=== PATIENT | female | born 1940 | race Caucasian/White ===

== ENCOUNTER 2019-03-04 07:13 | Day surgery (SDC) | payer MEDICARE, BC ==
[~2019-03-04 07:13] MED LIST: BUPIVACAINE HCL 0.75% INJ/PF (7.5 MG/1 ML) 10 ML SDV OD PRN; DORZOLAMIDE HCL 2%/TIMOLOL MALEAT 0.5% OPH SOLN 10 ML OD PRN; KETOROLAC TROMETHAMINE 0.45% 4 DROP/0.4 ML DROPERETTE OD PRN; LIDOCAINE 4% INJ/PF (40 MG/ML) 5 ML AMPUL OD PRN
[2019-03-04] MEDS ORDERED: EPINEPHRINE INJ/PF 1 MG/1 ML AMPULE ONE (07:17)
[2019-03-04] MEDS ORDERED: CHONDR SU A NA/HYALUR INTRAOC KIT (SURGICARE) ONE (07:18)
[2019-03-04] MEDS ORDERED: LIDOCAINE 1% INJ-PF (10 MG/ML) 30 ML SDV ONE (07:18)
[2019-03-04] MEDS: TROPICAMIDE 1% OPH SOLN 15 ML OD PRN ×3 (08:08→08:28)
[2019-03-04] MEDS: CYCLOPENTOLATE 0.2%/PHENYLEPHRINE 1% OPH SOLN 2 ML OD PRN ×3 (08:08→08:28)
[2019-03-04] MEDS: BESIFLOXACIN HCL 0.6% OPH SUSP 5 ML BOTTLE OD PRN ×3 (08:08→09:11)
[2019-03-04] MEDS: TETRACAINE HCL 0.5% OPH SOLN 4 ML OD PRN ×3 (08:09→08:46)
[2019-03-04] MEDS ORDERED: FENTANYL CITRATE INJ/PF 100 MCG/2 ML AMPUL ONE (08:37)
[2019-03-04] MEDS ORDERED: MIDAZOLAM 2 MG/2 ML INJ ONE (08:37)
--- NOTE | 2019-03-04 12:37 | Operative Report ---
Operative Report-[facility] Operative Report: DATE OF SURGERY: 03/04/2019 PREOPERATIVE DIAGNOSIS: CATARACT, RIGHT EYE. POSTOPERATIVE DIAGNOSIS: CATARACT, RIGHT EYE. PROCEDURE PERFORMED: PHACOEMULSIFICATION WITH POSTERIOR CHAMBER INTRAOCULAR LENS, RIGHT EYE. Intraocular Lens Model : Symfony Z XR 00 17.5 Total Phaco Time: 14.42 CDE SURGEON: AILYN COLLAZO MD ANESTHESIA: TOPICAL WITH MAC. INDICATIONS FOR SURGERY: Difficulty reading TV and difficulty with night driving. PROCEDURE: The patient was brought to the Operating Room and placed on the operative table. Following tetracaine drops, topical anesthesia was administered. This consisted of instrument wipe pledgets soaked in a solution of 4% Xylocaine mixed with 0.75% Marcaine in a 1:2 ratio. A 2 x 1 cm pledget was placed in the superior fornix. A 1 x 1 cm pledget was placed in the inferior fornix. The eye was patched shut for 5 minutes. The patch was removed. The eye was sterilely prepped and draped in the usual manner. Lid speculum was placed in the eye. The pledgets were removed. 4-0 black silk sutures were placed around the superior and the inferior rectus muscles to be used as traction. A conjunctival peritomy was made at the 10 o'clock position. Hemostasis was obtained with bipolar cautery. A posterior limbal groove was created using a crescent knife and dissected anteri jez towards the cornea. A sharp point blade was used to create a paracentesis site at the 2 o'clock position. 0.2 cc non preserved Lidocaine was injected into the anterior chamber. A 2.4 mm keratome was used to enter the anterior chamber through the groove. Viscoelastic was injected into the anterior chamber. An anterior capsulotomy was performed using Utrata forceps in a capsulorrhexis fashion. Hydrodissection and hydrodelineation were performed. Phacoemulsification was performed in [id number] technique. Following this, the I/A unit was used to remove residual cortex. Viscoelastic wa s injected into the capsular bag. The Intraocular lens was placed in the capsular bag. The I/A unit was used to remove residual viscoelastic. The wound was seen to be watertight under high and low pressure, and no sutures were placed. The intraocular lens was well centered. The pressure was adjusted in the eye to normal pressure. The 4-0 black silk sutures and lid speculum were removed. The eye was shielded after Besivance and Cosopt drops were placed. The patient tolerated the procedure well and was sent to the Recovery Room in good condition.
== END 2019-03-04 09:57 | disposition home or self-care (01) ==
LOC: SC 07:13
PROVIDERS: ATTEND Ophthalmology
DX: H25.811 Combined forms of age-related cataract, right eye (principal); I10 Essential (primary) hypertension; E11.9 Type 2 diabetes mellitus without complications; Z79.84 Long term (current) use of oral hypoglycemic drugs; Z79.899 Other long term (current) drug therapy; E78.00 Pure hypercholesterolemia, unspecified; Z86.73 Personal history of transient ischemic attack (TIA), and cerebral infarction without residual deficits; H25.813 Combined forms of age-related cataract, bilateral; H04.123 Dry eye syndrome of bilateral lacrimal glands; H01.002 Unspecified blepharitis right lower eyelid; H01.005 Unspecified blepharitis left lower eyelid
CPT/HCPCS: 66984; 82962; J2250; J3490 ×5; A9270; J0171; J3010; 142; V2788

== ENCOUNTER → 2019-03-25 | Day surgery (SDC) | payer MEDICARE, BC ==
[~2019-03-25] MED LIST changes: -BUPIVACAINE HCL 0.75% INJ/PF (7.5 MG/1 ML) 10 ML SDV OD PRN; +BUPIVACAINE HCL 0.75% INJ/PF (7.5 MG/1 ML) 10 ML SDV OS PRN; +CHONDR SU A NA/HYALUR INTRAOC KIT (SURGICARE) ONE; -DORZOLAMIDE HCL 2%/TIMOLOL MALEAT 0.5% OPH SOLN 10 ML OD PRN; +EPINEPHRINE INJ/PF 1 MG/1 ML AMPULE ONE; -KETOROLAC TROMETHAMINE 0.45% 4 DROP/0.4 ML DROPERETTE OD PRN; +KETOROLAC TROMETHAMINE 0.45% 4 DROP/0.4 ML DROPERETTE OS PRN; +LIDOCAINE 1% INJ-PF (10 MG/ML) 30 ML SDV ONE; -LIDOCAINE 4% INJ/PF (40 MG/ML) 5 ML AMPUL OD PRN; +LIDOCAINE 4% INJ/PF (40 MG/ML) 5 ML AMPUL OS PRN; +MIDAZOLAM 2 MG/2 ML INJ ONE
[2019-03-25] MEDS: TETRACAINE HCL 0.5% OPH SOLN 4 ML OS PRN ×3 (09:56→10:25)
[2019-03-25] MEDS: CYCLOPENTOLATE 0.2%/PHENYLEPHRINE 1% OPH SOLN 2 ML OS PRN ×3 (09:57→10:19)
[2019-03-25] MEDS: TROPICAMIDE 1% OPH SOLN 15 ML OS PRN ×3 (09:57→10:19)
[2019-03-25] MEDS: BESIFLOXACIN HCL 0.6% OPH SUSP 5 ML BOTTLE OS PRN ×4 (09:57→10:52)
[2019-03-25] MEDS: DORZOLAMIDE HCL 2%/TIMOLOL MALEAT 0.5% OPH SOLN 10 ML OS PRN ×2 (10:52)
--- NOTE | 2019-03-25 16:44 | Operative Report ---
Operative Report[facility] Operative Report: DATE OF SURGERY: 03/25/2019 PREOPERATIVE DIAGNOSIS: CATARACT, LEFT EYE. POSTOPERATIVE DIAGNOSIS: CATARACT, LEFT EYE. PROCEDURE PERFORMED: PHACOEMULSIFICATION WITH MULTIFOCAL POSTERIOR CHAMBER INTRAOCULAR LENS, LEFT EYE. Intraocular Lens Model :ZLBOO 19.5 Total Phaco Time: 9.7 CDE SURGEON: AILYN COLLAZO MD ANESTHESIA: TOPICAL WITH MAC. INDICATIONS FOR SURGERY: Difficultly driving at night PROCEDURE: The patient was brought to the Operating Room and placed on the operative table. Following tetracaine drops, topical anesthesia was administered. This consisted of instrument wipe pledgets soaked in a solution of 4% Xylocaine mixed with 0.75% Marcaine in a 1:2 ratio. A 2 x 1 cm pledget was placed in the superior fornix. A 1 x 1 cm pledget was placed in the inferior fornix. The eye was patched shut for 5 minutes. The patch was removed. The eye was sterilely prepped and draped in the usual manner. Lid speculum was placed in the eye. The pledgets were removed. 4-0 black silk sutures were placed around the superior and the inferior rectus muscles to be used as traction. A conjunctival peritomy was made at the 10 o'clock position. Hemostasis was obtained with bipolar cautery. A posterior limbal groove was created using a crescent knife and dissected anteriorly towards the cornea. A sharp point blade was used to create a paracentesis site at the 2 o'clock position. 0.2 cc non preserved Lidocaine was injected into the anterior chamber. A 2.4 mm keratome was used to enter the anterior chamber through the groove. Viscoelastic was injected into the anterior chamber. An anterior capsulotomy was performed using Utrata forceps in a capsulorrhexis fashion. Hydrodissection and hydrodelineation were performed. Phacoemulsification was performed in [id number] technique. Following this, the I/A unit was used to remove residual cortex. Viscoelastic was injected into the capsular bag. The Intraocular lens was placed in the capsular bag. The I/A unit was used to remove residual viscoelastic. The wound was seen to be watertight under high and low pressure, and no sutures were placed. The intraocular lens was well centered. The pressure was adjusted in the eye to normal pressure. The 4-0 black silk sutures and lid speculum were removed. The eye was shielded after Besivance and Cosopt drops were placed. The patient tolerated the procedure well and was sent to the Recovery Room in good condition.
== END ==
LOC: SC 08:59
PROVIDERS: ATTEND Ophthalmology
DX: H25.812 Combined forms of age-related cataract, left eye (principal); Z96.1 Presence of intraocular lens; I10 Essential (primary) hypertension; E11.9 Type 2 diabetes mellitus without complications; Z79.84 Long term (current) use of oral hypoglycemic drugs; Z79.899 Other long term (current) drug therapy
CPT/HCPCS: 66984; 82962; J2250; J3490 ×5; A9270; J0171; V2788

== ENCOUNTER 2019-11-30 17:05 | Emergency (ER) | payer MEDICARE, BC ==
[2019-11-30] MEDS ORDERED: NORMAL SALINE 1000 ML 1,000 ML IV ONE ×2 (17:23→18:23)
--- NOTE | 2019-11-30 17:25 | ER Document Report ---
ED Dizziness/Weakness <ARIELLE SALMERON IV - Last Filed: 12/01/19 04:49> - General Mode of Arrival: Medic Information source: Patient TRAVEL OUTSIDE OF THE [place] IN LAST 30 DAYS: No <MEGAN STEELE - Last Filed: 12/07/19 01:49> - General Chief Complaint: Weakness Stated Complaint: WEAKNESS Time Seen by Provider: 11/30/19 17:22 Primary Care Provider: DOMINIQUE ANDERSON MD [ACTIVE STAFF] - 12/01/19 (expect a call from Dr. Anderson's office today. ) MASON ESPINAL DO [Primary Care Provider] - Follow up as needed Notes: 79-year-old woman who was outside in the sun [place], she was out in the sun and became dizzy lightheaded and very weak EMS was called and the patient was found to be hypotensive with a systolic blood pressure in the 70s. She notes that she had not eaten today and had not drank very much fluids. She denies sweaty episodes or chest pain. She states that she had felt dizzy over the past 2 days but denies vertigo-like symptoms, but affirms lightheadedness and a sensation that she might pass out. She is taking metoprolol 50 mg daily for hypertension management. (IVETTE,MEGAN) - Related Data Allergies/Adverse Reactions: ibuprofen [From Motrin] Allergy (Mild, Verified 11/30/19 18:44) CRAMPING, NAUSEA allopurinol [Allopurinol] Adverse Reaction (Intermediate, Verified 11/30/19 18:44) COUGH Past Medical History - General Information source: Patient - Social History Smoking Status: Unknown if Ever Smoked Family History: Reviewed & Not Pertinent - Past Medical History Cardiac Medical History: Reports: Hx Hypercholesterolemia, Hx Hypertension, Hx Heart Murmur Denies: Hx Heart Attack Pulmonary Medical History: Reports: Hx Asthma, Hx Bronchitis - 2010, Hx Sleep Apnea Denies: Hx Tuberculosis Neurological Medical History: Reports: Hx Cerebrovascular Accident - SILENT STROKE ON MRI 2012. Denies: Hx Seizures Endocrine Medical History: Reports: Hx Diabetes Mellitus Type 2 GI Medical History: Reports: Hx Gastroesophageal Reflux Disease. Denies: Hx Hepatitis, Hx Hiatal Hernia, Hx Ulcer Musculoskeletal Medical History: Reports Hx Arthritis - hands, neck, knees Psychiatric Medical History: Reports: Hx Depression Infectious Medical History: Denies: Hx Hepatitis Past Surgical History: Reports: Hx Abdominal Surgery, Hx Appendectomy, Hx Cholecystectomy, Hx Hysterectomy, Hx Tonsillectomy. Denies: Hx Mastectomy, Hx Open Heart Surgery, Hx Pacemaker - Immunizations Hx Diphtheria, Pertussis, Tetanus Vaccination: No Hx Pneumococcal Vaccination: 01/08/12 <MEGAN STEELE - Last Filed: 12/07/19 01:49> Review of Systems <MEGAN STEELE - Last Filed: 12/07/19 01:49> - Review of Systems Notes: Constitutional: + weakness HENT: Negative for sore throat. Eyes: Negative for visual changes. Cardiovascular: Negative for chest pain. Respiratory: Negative for shortness of breath. Gastrointestinal: Negative for abdominal pain, vomiting or diarrhea. Genitourinary: Negative for dysuria. Musculoskeletal: Negative for back pain. Skin: Negative for rash. Neurological: + Dizziness 10 point ROS negative except as marked above and in HPI. (MEGAN STEELE) Physical Exam <MEGAN STEELE - Last Filed: 12/07/19 01:49> - Vital signs Vitals: Resp Pulse Ox 13 99 11/30/19 17:13 11/30/19 17:13 - Notes Notes: PHYSICAL EXAMINATION: Physical Exam: General: Well-nourished well-developed 79-year-old woman with complaint of dizziness and weakness HEENT: NC/AT, pupils equal round and reactive to light, MM moist,nares clear, oropharynx clear, airway patent Neck: supple, no adenopathy, no masses. Good range of motion Lungs: Good air movement, lungs clear no wheezes rales or rhonchi CVS: Regular rate and rhythm no murmur gallop or rub Abdomen: Soft, active, nontender, no masses, no hepatosplenomegaly Ext: No edema, clubbing or cyanosis. Neuro: Alert and responsive, moving all 4 extremities on command, cranial nerves intact, no focal findings Skin: Intact no open lesions, no rash PSYCH: Normal mood, normal affect. (MEGAN STEELE) Course - Laboratory Result Diagrams: 11/30/19 17:27 11/30/19 17:27 - Diagnostic Test Radiology reviewed: Reports reviewed - Consults Dr. Anderson Time consulted: 23:20 - Dr. Anderson obtained the patient's demographic information. He stated that his office would contact patient on 12/01/2019 to arrange follow up appointment Consulted provider: follow-up in office <ARIELLE SALMERON IV - Last Filed: 12/01/19 04:49> - Laboratory Result Diagrams: 11/30/19 17:27 11/30/19 17:27 <MEGAN STEELE - Last Filed: 12/07/19 01:49> - Re-evaluation Re-evalutation: 12/01/19 04:49 Patient has been able to tolerate p.o., has been able to ambulate to the bathroom without difficulty and is in no acute distress. Patient's current blood pressure is 125/84 with a heart rate of 66. O2 sats 100% on room air. Respiration rate is 16. Results of CT scan and concern for pancreatic carcinoma discussed with patient. Patient states that her brother of pancreatic cancer. Patient was also informed that was consulted about the CAT scan findings and that his office would be getting in touch with her later today. (ARIELLE SALMERON IV) 11/30/19 19:36 79-year-old woman who became dizzy and lightheaded while outside with her car which was [place] the beach. Found to be hypotensive by EMS given 1 L of saline with slight improvement of the blood pressure. She has received a total of 2-1/2 L in the emergency department, blood pressure now 94/62 review of her labs reveals potassium of 2.8, a sodium of 129.9, elevated LFTs and total bilirubin. The patient denies abdominal pain, states that she has had a cholecystectomy 4 years ago. Orders were given for potassium replacement, she is receiving 1/3 L of normal saline and a CT of the abdomen and pelvis with IV contrast is ordered. I have explained to the patient that she may need to be admitted to the hospital for further clarity and treatment. (MEGAN STEELE) - Vital Signs Vital signs: Temp Pulse Resp BP Pulse Ox 60 16 110/50 L 96 11/30/19 20:06 12/01/19 05:32 12/01/19 05:32 12/01/19 05:32 - Laboratory Laboratory results interpreted by me: 11/30/19 11/30/19 11/30/19 17:27 17:27 17:27 WBC 3.3 L RBC 3.69 L Hct 34.5 L Plt Count 101 L Eos % (Auto) 6.8 H Sodium 129.8 L Potassium 2.8 L* Chloride 96 L BUN 6 L Est GFR (MDRD) Non-Af 50 L Glucose 337 H Magnesium 1.4 L Total Bilirubin 3.4 H Direct Bilirubin 2.1 H AST 924 H ALT 531 H Alkaline Phosphatase 387 H NT-Pro-B Natriuret Pep Total Protein 4.9 L Albumin 2.7 L Urine Glucose (UA) Leukocyte Esterase Rfl 11/30/19 11/30/19 17:27 21:10 WBC RBC Hct Plt Count Eos % (Auto) Sodium Potassium Chloride BUN Est GFR (MDRD) Non-Af Glucose Magnesium Total Bilirubin Direct Bilirubin AST ALT Alkaline Phosphatase NT-Pro-B Natriuret Pep 570 H Total Protein Albumin Urine Glucose (UA) 150 H Leukocyte Esterase Rfl MODERATE H - Consults Dr. Anderson Reason for consultation: 12/01/19 04:53 ct a/p concerning for pancreatic adenocarcinoma (ARIELLE SALMERON IV) Discharge <ARIELLE SALMERON IV - Last Filed: 12/01/19 04:49> <MEGAN STEELE - Last Filed: 12/07/19 01:49> - Discharge Clinical Impression: Dehydration, Hypokalemia, Hypomagnesemia, Abnormal LFTs (liver function tests), Pancreatic abnormality Hypotension Qualifiers: Hypotension type: unspecified hypotension type Qualified Code(s): I95.9 - Hypotension, unspecified UTI (urinary tract infection) Qualifiers: Urinary tract infection type: site unspecified Hematuria presence: without hematuria Qualified Code(s): N39.0 - Urinary tract infection, site not specified Condition: Stable Disposition: HOME, SELF-CARE Additional Instructions: Return to the Emergency Department without delay if any worse. HOME CARE INSTRUCTIONS & INFORMATION: Thank you for choosing us for your medical needs. We hope you're satisfied with the care you received. After you leave, you must properly care for your problem and, at the same time, observe its progress. Any condition can change. Some illnesses can change rapidly over hours or days. If your condition worsens, return to the Emergency Department or see your physician promptly. ABOUT YOUR X-RAYS AND EKG'S: If you had an EKG or X-rays taken, they have been read by the Emergency Physician. The X-rays and EKG's will also be read by a Radiologist or Road Advisor within 24 hours. If discrepancies are noted, you will be notified by telephone. Please be certain the ED has a correct telephone number & address where you can be reached. Also, realize that some fractures or abnormalities do not show up on initial X-rays. If your symptoms continue, see your physician. ABOUT YOUR LABORATORY TEST: If you had laboratory tests, the results have been reviewed by the Emergency Physician. Some test results (for example cultures) may not be available for several days. You will be contacted if any test result shows you need additional treatment. Please be certain the ED has a correct telephone number and address where you can be reached. ABOUT YOUR MEDICATIONS: You will receive instructions on how to take your medicine on the prescription label you receive. Additional information may be provided by the Pharmacy. If you have questions afterwards, call the ED for clarification or further instructions. Some prescribed medications may cause drowsiness. Do not perform tasks such as driving a car or operating machinery without consulting your Pharmacist. If you feel you need a refill of pain medication, your condition will need re-evaluation. Please do not call for a refill of any medication. ABOUT YOUR SIGNATURE: Signature of this document acknowledges to followin. Understanding that you received emergency treatment and that you may be released before al medical problems are known or treated. Please be certain the ED has a correct phone number & address where you can be reached. 2. Acknowledgement that you will arrange for follow-up care as recommended. 3. Authorization for the Emergency Physician to provide information to your follow-up Physician in order to maximize your care. AT ANY TIME, IF YOUR SYMPTOMS CHANGE SIGNIFICANTLY OR WORSEN OR YOU DEVELOP NEW SYMPTOMS, RETURN TO THE EMERGENCY DEPARTMENT IMMEDIATELY FOR RE-EVALUATION. OUR GOAL IS TO PROVIDE EXCELLENT MEDICAL CARE! WE HOPE THAT WE HAVE MET YOUR EXPECTATIONS DURING YOUR EMERGENCY DEPARTMENT VISIT AND THAT YOU FEEL YOU HAVE RECEIVED EXCELLENT CARE! Dehydration Dehydration can result from vomiting or diarrhea, fever, or decreased intake of fluids. If severe, hospitalization and intravenous fluids may be required. Most cases are treated at home with fluids by mouth. For the next 24 hours, drink lots of clear fluids. In mild cases, this can be soda pop or sports drinks. For more severe dehydration, the doctor may rec ommend special fluids such as Pedialyte or Lytren. Try to get three liters (3 quarts) of fluid per day. If vomiting occurs, continue to drink the fluids frequently (every 15 to 20 minutes), but in small amounts (one or two ounces). Depending on the type of dehydration, the doctor may prescribe antinausea medicine or potassium replacements. Call the doctor or return for re-examination if you become progressively weak, vomit repeatedly, or have other new symptoms. Hypokalemia You have an abnormally decreased level of serum potassium. Hypokalemia may cause weakness, fatigue, or heart rhythm abnormalities. Sometimes there are no symptoms at all. Usually, low serum potassium is due to taking diuretics (water pills). It can also be due to excessive vomiting or diarrhea. If no obvious cause is evident, further evaluation will be necessary. Treatment is usually oral potassium supplements. Take these exactly as prescribed. You may also want to select foods which are naturally high in potassium -- fruits (such as bananas, cantaloupe, grapes, oranges, prunes, tomat oes), fresh vegetables (potatoes, spinach, beans, peas), orange or tomato juice, tomato pasta sauce, milk, fish (halibut, tuna, salmon, eusebio) A follow-up blood test is usually performed to assure that the potassium is returning to normal. Call the physician if you suffer severe weakness, muscle twitching or cramping, palpitations (pounding or irregular heartbeat), or any other new or alarming symptoms. Urinary Tract Infection Your evaluation indicates that you have a urinary tract infection. This is due to germs growing in the bladder. This is a common problem. This infection usually responds quickly to antibiotics. Your antibiotic should be taken exactly as prescribed. Drink plenty of fluids -- three to four quarts a day. Occasionally, a bladder anesthetic will be prescribed to help stop the feeling of urgency until the antibiotic has a chance to clear the infection. This may cause your urine to be dark orange. Certain urine infections require a culture. If the doctor obtained a culture, the results will be back in two days. You should call to see if a change in treatment is needed. A repeat urinalysis after you finish treatment is often recommended. The physician will let you know if further testing is required. Call the doctor if you develop fever, chills, flank pain, inability to urinate, or blood in the urine. Prescriptions: Nitrofurantoin Monohyd/M-Cryst [Macrobid 100 mg Capsule] 100 mg PO BID 10 Days #20 cap Referrals: MASON ESPINAL DO [Primary Care Provider] - Follow up as needed DOMINIQUE ANDERSON MD [ACTIVE STAFF] - 12/01/19 (expect a call from Dr. Anderson's office today. )
[2019-11-30 17:47] LABS: ABSOLUTE EOSINOPHILS # (AUTO) 0.2 10^3/uL (0.0-0.6); ABSOLUTE LYMPHOCYTES (AUTO) 0.5 10^3/uL (0.5-4.7); ABSOLUTE MONOCYTES (AUTO) 0.2 10^3/uL (0.1-1.4); ABSOLUTE NEUT (AUTO) 2.4 10^3/uL (1.7-8.2); EOSINOPHILS % (AUTO) 6.8 % (0-6); HEMATOCRIT 34.5 % (36.0-47.0); LYMPHOCYTES % (AUTO) 14.4 % (13-45); MEAN CORPUSCULAR HEMOGLOBIN 32.5 pg (27.0-33.4); MEAN CORPUSCULAR HGB CONC 34.8 g/dL (32.0-36.0); MEAN CORPUSCULAR VOLUME 94 fl (80-97); MONOCYTES % (AUTO) 6.4 % (3-13); PLATELET COUNT 101 10^3/uL (150-450); RED BLOOD COUNT 3.69 10^6/uL (3.72-5.28); RED CELL DISTRIBUTION WIDTH 13.4 % (11.5-14.0); SEGMENTED NEUTROPHILS % (AUTO) 71.4 % (42-78); TOTAL CELLS COUNTED % (AUTO) 100 %; WHITE BLOOD COUNT 3.3 10^3/uL (4.0-10.5)
[2019-11-30 18:03] LABS: ALBUMIN 2.7 g/dL (3.5-5.0); ALKALINE PHOSPHATASE 387 U/L (38-126); ANION GAP 8 (5-19); BILIRUBIN,DIRECT 2.1 mg/dL (0.0-0.4); BILIRUBIN,TOTAL 3.4 mg/dL (0.2-1.3); BLOOD UREA NITROGEN 6 mg/dL (7-20); CARBON DIOXIDE 26 mmol/L (22-30); CHLORIDE 96 mmol/L (98-107); CREATINE KINASE 48 U/L (30-135); GLUCOSE 337 mg/dL (75-110); TOTAL PROTEIN 4.9 g/dL (6.3-8.2)
[2019-11-30 18:12] LABS: ASPARTATE AMINO TRANSFERASE 924 U/L (14-36)
[2019-11-30 18:13] LABS: POTASSIUM 2.8 mmol/L (3.6-5.0)
[2019-11-30 18:15] LABS: CREATINE KINASE MB 0.82 ng/mL (<4.55); TROPONIN I 0.02 ng/mL
--- NOTE | 2019-11-30 19:21 | EKG REPORT ---
SEVERITY:- ABNORMAL ECG - SINUS RHYTHM BORDERLINE LEFT AXIS DEVIATION NONSPECIFIC T ABNORMALITIES, DIFFUSE LEADS : Confirmed by: Gary Tran 30-Nov-2019 19:20:18
--- NOTE | 2019-11-30 20:20 | RADIOLOGY REPORT (SQ) ---
AP Portable chest: 11/30/2019 7:19 PM CDT History: 79-year old patient with dizziness, weakness. Comparison: None available Findings: The cardiomediastinal silhouette is normal in size. No pneumothorax is seen. No acute airspace opacities are seen. No discrete pleural effusion is apparent. Impression: No acute airspace opacities are seen.
[2019-11-30] MEDS ORDERED: POTASSIUM CHLORIDE 20 MEQ PACKET PO ONE (20:30)
[2019-11-30] MEDS: POTASSI CL 20 MEQ/50 ML RIDER 20 MEQ/50 ML RTUPB IV SCH ×2 (20:36→23:04)
[2019-11-30 21:29] LABS: APPEARANCE,URINE SLIGHTLY-CLOUDY; BILIRUBIN,URINE NEGATIVE (NEGATIVE); COLOR,URINE YELLOW; GLUCOSE, URINE 150 mg/dL (NEGATIVE); KETONES,URINE NEGATIVE (NEGATIVE); PROTEIN,URINE NEGATIVE (NEGATIVE); URINE SPECIFIC GRAVITY 1.006; UROBILINOGEN,URINE NEGATIVE mg/dL (<2.0)
--- NOTE | 2019-11-30 22:09 | RADIOLOGY REPORT (SQ) ---
EXAM DESCRIPTION: CT ABDOMEN PELVIS WITH IV CONTRAST COMPLETED DATE/TME: 11/30/2019 19:42 CLINICAL HISTORY: 79 years, Female, Elevated T bili liver function tests. COMPARISON: None. TECHNIQUE: Contrast enhanced CT of the abdomen/pelvis was performed. Images were obtained after the administration of 91 mL of Omnipaque 350 intravenous contrast. Images stored on PACS. All CT scanners at this facility use dose modulation, iterative reconstruction, and/or weight based dosing when appropriate to reduce radiation dose to as low as reasonably achievable (ALARA). [facility]: Dose Right [facility]: CareDose [facility]: Dose Right [facility]: Teradose 4D [facility]: [email or web address] LIMITATIONS: None. FINDINGS: Limited evaluation of the lower chest reveals a band of opacity within the lingula, likely indicating an area of atelectasis or scar. Lung bases are otherwise clear. Liver is diffusely low in attenuation relative to the spleen. The gallbladder is absent. Mild intrahepatic biliary duct dilatation is noted, especially about the left hepatic lobe. In addition, the common bile duct appears dilated as well, abruptly changing in caliber as the common bile duct courses through the pancreatic head. The pancreatic duct is also dilated and ectatic with associated atrophy involving the pancreatic neck, body, and tail. Ultimately, the pancreatic duct also abruptly transitions in caliber at the level of the pancreatic head, best visualized on images 30-31 of series 3. There may be an ill-defined hypodensity about the pancreatic head at this location, best visualized on image 30 of series 601. Spleen, both adrenal glands, and both kidneys enhance symmetrically. However, a few subcentimeter low-density lesions are noted about both kidneys which are too small to accurately characterize. A few punctate calculi are noted about the lower pole of the left kidney as well. No hydronephrosis or hydroureter. The urinary bladder is well distended and shows no suspicious finding. Uterus and both ovaries are not visualized. Small and large bowel are normal in caliber. No evidence of bowel obstruction. There are small ventral hernias which contain short segment of small bowel. Calcifications are evident about the abdominal aorta and proximal iliac vessels. No suspicious lymphadenopathy or drainable fluid collections. Bone windows show no destructive osseous lesion. There is grade 1 anterolisthesis of L4 upon L5 with underlying moderate multilevel thoracolumbar spondylosis. IMPRESSION: Mild intrahepatic and common bile duct dilatation as well as pancreatic ductal dilatation (with atrophy involving the pancreatic neck, body, and tail), both of which appear to abruptly change in caliber at the level of the pancreatic head. Overall, these findings are concerning for an obstructive malignancy such as pancreatic adenocarcinoma or potentially a cholangiocarcinoma. Given that there is an ill-defined area of hypodensity located about the pancreatic head, pancreatic adenocarcinoma is favored. Recommend further assessment with EUS/ERCP. Small ventral hernias containing short segment of small bowel. No evidence of obstruction. Nonobstructive left nephrolithiasis. TECHNICAL DOCUMENTATION: Quality ID # [id number]: Final reports with documentation of one or more dose reduction techniques (e.g., Automated exposure control, adjustment of the mA and/or kV according to patient size, use of iterative reconstruction technique) copyright 2011 [employer]- All Rights Reserved
[2019-11-30] MEDS: MAGNESIUM SULFATE/D5W 1 GM/100 ML RTUPB IV SCH (23:04)
[2019-11-30] MEDS ORDERED: CEFTRIAXONE INJ 1000 MG VIAL IV ONE (23:27)
[2019-12-01] MEDS: MAGNESIUM SULFATE/D5W 1 GM/100 ML RTUPB IV SCH (00:51)
[2019-12-01] MEDS ORDERED: NORMAL SALINE 1000 ML 1,000 ML IV ONE (01:17)
[2019-12-01] MEDS ORDERED: NORMAL SALINE 1000 ML 500 ML IV ONE (04:20)
[2019-12-01 05:59] VITALS: BP 110/50
== END 2019-12-01 06:34 | disposition home or self-care (01) ==
LOC: ER 17:05
DX: N39.0 Urinary tract infection, site not specified (principal); I95.9 Hypotension, unspecified; R94.8 Abnormal results of function studies of other organs and systems; R94.5 Abnormal results of liver function studies; E83.42 Hypomagnesemia; E87.6 Hypokalemia; E86.0 Dehydration; R53.1 Weakness; R42 Dizziness and giddiness; E78.00 Pure hypercholesterolemia, unspecified; I10 Essential (primary) hypertension; E11.9 Type 2 diabetes mellitus without complications; Z88.6 Allergy status to analgesic agent
CPT/HCPCS: 93005; 99285; 96361; 96365; 96366; 96367; 96368; 36415; 87086; 82553; 82550; 83690; 83735; 85025; 80053; 81001; 84484; 83880; 71045; 74177; 93010; J3475 ×2; J0696; J3480; J7030 ×2; J3490

== ENCOUNTER → 2020-01-06 | Outpatient (CLI) | payer MEDICARE, BC | LOC: RAD 10:31 | PROVIDERS: ATTEND Internal Medicine | DX: C25.0 Malignant neoplasm of head of pancreas (principal) ==

== ENCOUNTER → 2020-01-20 | Outpatient (CLI) | payer MEDICARE, BC ==
--- NOTE | 2020-01-20 14:46 | RADIOLOGY REPORT (SQ) ---
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 TECHNIQUE: CT scan performed of the chest without intravenous contrast. Images reviewed with lung, soft tissue and bone windows. Reconstructed coronal and sagittal MPR images reviewed. All images st ored on PACS. All CT scanners at this facility use dose modulation, iterative reconstruction, and/or weight based d osing when appropriate to reduce radiation dose to as low as reasonably achievable (ALARA). [facility]: Dose Right [facility]: CareDose [facility]: Dose Right [facility]: Teradose 4D [facility]: Smart [employer] RADIATION DOSE: CT Rad equipment meets quality standard of care and radiation dose reduction techniq ues were employed. CTDIvol: 9.6 mGy. DLP: 342 mGy-cm. mGy. LIMITATIONS: No technical limitations. FINDINGS: LUNGS AND PLEURA: The trachea has normal caliber and appearance. No bronchial wall thicke guilherme or bronchiectasis. No focal consolidation. 6 mm subpleural nodule along the medial pleura supe rior segment left lower lobe (image 36), possibly rounded atelectasis with pleural scarring, indeterm inate. Minimal atelectasis lingula and right middle lobe. No other pulmonary nodules. HILAR AND MEDIASTINAL STRUCTURES: No identified masses or abnormal nodes. No obvious aneurysm. HEART AND VASCULAR STRUCTURES: Heart has normal size. Trace pericardial effusion. UPPER ABDOMEN: Interval development of pneumobilia with placement of a biliary stent since previous. Anastomosis in the transverse colon without evidence of bowel obstruction. No upper abdominal adeno scarlet. Partial visualization of the pancreas with poor visualization of the previously described mondragon creatic head lesion. THYROID AND OTHER SOFT TISSUES: No masses. No adenopathy. BONES: No significant finding. HARDWARE: None in the chest. OTHER: No other significant findings. IMPRESSION: 1. Indeterminate 6 mm subpleural nodule in the superior segment left lower lobe may represent rounded atelectasis with pleural scarring, however is indeterminate. A follow-up CT of the chest in 3 month s is recommended for re-evaluation. 2. Interval placement of a biliary stent with development of pneumobilia. The previously described p ancreatic head mass is poorly evaluated on this exam. TECHNICAL DOCUMENTATION: JOB ID: [id number] Quality ID # [id number]: Final reports with documentation of one or more dose reduction techniques (e.g., Au tomated exposure control, adjustment of the mA and/or kV according to patient size, use of iterative reconstruction technique) 2010 [employer]- All Rights Reserved Reading location - IP/workstation name: [email or web address]
== END ==
LOC: RAD 10:18
PROVIDERS: ATTEND Internal Medicine
DX: C25.0 Malignant neoplasm of head of pancreas (principal); R91.1 Solitary pulmonary nodule
CPT/HCPCS: 71250

== ENCOUNTER 2020-01-21 07:15 | Day surgery (SDC) | payer MEDICARE, BC ==
[~2020-01-21 07:15] MED LIST changes: +ACETAMINOPHEN 325 MG TABLET PO PRN; -BUPIVACAINE HCL 0.75% INJ/PF (7.5 MG/1 ML) 10 ML SDV OS PRN; +CEFAZOLIN 2 GM/D5W RTU 2 GM/50 ML RTUPB IV PRN; -CHONDR SU A NA/HYALUR INTRAOC KIT (SURGICARE) ONE; -EPINEPHRINE INJ/PF 1 MG/1 ML AMPULE ONE; +IBUPROFEN 800 MG in NORMAL SALINE 250 ML IV PRN; -KETOROLAC TROMETHAMINE 0.45% 4 DROP/0.4 ML DROPERETTE OS PRN; -LIDOCAINE 1% INJ-PF (10 MG/ML) 30 ML SDV ONE; -LIDOCAINE 4% INJ/PF (40 MG/ML) 5 ML AMPUL OS PRN; -MIDAZOLAM 2 MG/2 ML INJ ONE
[2020-01-21] MEDS ORDERED: ACETAMINOPHEN 325 MG TABLET ONE (08:06)
[2020-01-21] MEDS ORDERED: CEFAZOLIN 2 GM/D5W RTU 2 GM/50 ML RTUPB IV ONE (08:06)
--- NOTE | 2020-01-21 08:37 | RADIOLOGY REPORT (SQ) ---
EXAM DESCRIPTION: CHEST SINGLE VIEW IMAGES COMPLETED DATE/TIME: 01/21/2020 7:55 am REASON FOR STUDY: PAC COMPARISON: 11/30/2019 EXAM PARAMETERS: NUMBER OF VIEWS: One view. TECHNIQUE: Single frontal radiographic view of the chest acquired. RADIATION DOSE: NA LIMITATIONS: None. FINDINGS: LUNGS AND PLEURA: No opacities, masses or pneumothorax. No pleural effusion. MEDIASTINUM AND HILAR STRUCTURES: No masses. Contour normal. HEART AND VASCULAR STRUCTURES: Heart normal in size. Normal vasculature. BONES: Stable thoracic scoliosis with concavity toward the left. HARDWARE: None in the chest. OTHER: No other significant finding. IMPRESSION: NO ACUTE RADIOGRAPHIC FINDING IN THE CHEST. TECHNICAL DOCUMENTATION: JOB ID: [id number] 2010 [employer]- All Rights Reserved Reading location - IP/workstation name: [email or web address]
[2020-01-21] MEDS ORDERED: EPHEDRINE SULFATE INJ 50 MG/1 ML AMPULE ONE (09:04)
[2020-01-21] MEDS ORDERED: FENTANYL CITRATE INJ/PF 100 MCG/2 ML AMPUL ONE (09:04)
[2020-01-21] MEDS ORDERED: PROPOFOL INJ 200 MG/20 ML VIAL IV ONE (09:05)
[2020-01-21 09:28] LABS: ABSOLUTE LYMPHOCYTES (AUTO) 1.2 10^3/uL (0.5-4.7); ABSOLUTE MONOCYTES (AUTO) 0.4 10^3/uL (0.1-1.4); ABSOLUTE NEUT (AUTO) 3.9 10^3/uL (1.7-8.2); BASOPHILS % (AUTO) 0.3 % (0-2); EOSINOPHILS % (AUTO) 0.6 % (0-6); HEMOGLOBIN 13.4 g/dL (12.0-15.5); LYMPHOCYTES % (AUTO) 21.7 % (13-45); MEAN CORPUSCULAR HEMOGLOBIN 33.9 pg (27.0-33.4); MEAN CORPUSCULAR HGB CONC 34.3 g/dL (32.0-36.0); MEAN CORPUSCULAR VOLUME 99 fl (80-97); MONOCYTES % (AUTO) 6.5 % (3-13); PLATELET COUNT 141 10^3/uL (150-450); RED BLOOD COUNT 3.95 10^6/uL (3.72-5.28); RED CELL DISTRIBUTION WIDTH 14.1 % (11.5-14.0); SEGMENTED NEUTROPHILS % (AUTO) 70.9 % (42-78); TOTAL CELLS COUNTED % (AUTO) 100 %; WHITE BLOOD COUNT 5.5 10^3/uL (4.0-10.5)
[2020-01-21] MEDS ORDERED: BUPIVACAINE HCL 0.25 % INJ/PF (2.5 MG/1 ML) 30 ML VIAL ONE (09:29)
[2020-01-21] MEDS ORDERED: LIDOCAINE 1% INJ-PF (10 MG/ML) 30 ML SDV ONE (09:29)
[2020-01-21 09:52] LABS: ANION GAP 12 (5-19); BLOOD UREA NITROGEN 10 mg/dL (7-20); CALCIUM 9.3 mg/dL (8.4-10.2); CARBON DIOXIDE 25 mmol/L (22-30); CHLORIDE 100 mmol/L (98-107); GLUCOSE 143 mg/dL (75-110)
[2020-01-21] MEDS ORDERED: POTASSI CL 20 MEQ/50 ML RIDER 20 MEQ/50 ML RTUPB IV ONE (09:59)
[2020-01-21] MEDS ORDERED: FENTANYL CITRATE INJ/PF 100 MCG/2 ML AMPUL IV PRN ×3 (10:56)
[2020-01-21] MEDS ORDERED: MORPHINE SULFATE 10 MG/ML INJ IV PRN (10:56)
[2020-01-21] MEDS ORDERED: OXYCODONE-ACETAMINOPHEN 5-325 MG TABLET PO PRN ×2 (10:56)
[2020-01-21] MEDS ORDERED: MEPERIDINE HCL/PF INJ 25 MG/1 ML DISP.SYRIN IV PRN (10:56)
[2020-01-21] MEDS ORDERED: DIPHENHYDRAMINE HCL 50 MG/ML VIAL IV PRN (10:56)
[2020-01-21] MEDS ORDERED: PROMETHAZINE HCL INJ 25 MG/1 ML VIAL IV PRN ×2 (10:56)
--- NOTE | 2020-01-21 11:08 | Discharge Summary ---
Discharge Summary (SDC) - Discharge Final Diagnosis: Pancreatic cancer Date of Surgery: 01/21/20 Discharge Date: 01/21/20 Condition: Stable Treatment or Instructions: Discharge home. Diet as tolerated. Activity: As tolerated. Okay to use Mediport. Okay to shower starting Sunday. Prescriptions: Hydrocodone/Acetaminophen [Monon 5-325 mg Tablet] 1 tab PO Q6HP PRN #10 tablet PRN Reason: For Pain Referrals: MASON ESPINAL DO [Primary Care Provider] - Discharge Diet: As Tolerated Respiratory Treatments at Home: Deep Breathing/Coughing, Incentive Spirometer Discharge Activity: Balance Activity w/Rest Home Care Assistance: None Needed Report the Following to Your Physician Immediately: Shortness of Breath, Nausea, Vomiting, Increase in Pain, Fever over 101 Degrees, Unusual Bleeding, Redness, Swelling, Warmth, Increased Soreness
[2020-01-21] MEDS ORDERED: HYDROCODONE/ACETAMINOPHEN 5-325 MG TABLET PO PRN (11:14)
--- NOTE | 2020-01-21 11:14 | Operative Report ---
Nonrecallable Operative Report DATE OF SURGERY: 01/21/20 PREOPERATIVE DIAGNOSIS: Pancreatic cancer POSTOPERATIVE DIAGNOSIS: Same as above OPERATION: 1. Ultrasound-guided central venous puncture. 2. Left internal jugular vein Mediport placement. SURGEON: LUPILLO ARANA ANESTHESIA: LMAC TISSUE REMOVED OR ALTERED: None COMPLICATIONS: None apparent ESTIMATED BLOOD LOSS: Minimal PROCEDURE: Drains/implants: Mediport, left IJ. Procedure in detail: After informed consent was obtained, the patient was brought to the operating room and laid in the Trendelenburg position. The area of the neck and chest was prepped and draped in a normal sterile fashion. The ultrasound was used to identify the left internal jugular vein. It was compressible with normal flow. Under direct ultrasonic guidance, the jugular vein was cannulated using the supplied access needle. Dark venous, nonpulsatile blood was returned in the syringe. The wire was inserted easily. It was confirmed to be within the lumen of the vein using both the ultrasound as well as fluoroscopy. Documentation was obtained and placed on the chart. Once this was confirmed, a separate incision was created on the left chest wall with a 15 blade scalpel. The catheter was then tunneled from the Mediport insertion site, to the needle insertion site. The dilator and breakaway sheath were then inserted over the wire, under direct fluoroscopic guidance. The wire and dilator were removed, leaving the sheath within the SVC. The catheter was inserted into the breakaway sheath. The sheath was cracked and pulled away, leaving the catheter within the innominate vein. The catheter curled within the innominate vein, so it was pulled back to a level where it was straight, but laid within the innominate vein. Once this was completed, the catheter was trimmed, and the Mediport hub was attached. The hub was buried in the pocket. The Mediport hub was sutured to the chest wall using 3-0 Vicryl suture. The overlying skin was closed using 3-0 Vicryl suture in simple running fashion. The skin was closed using 4-0 Vicryl Rapide suture in subcuticular fashion. The Mediport was accessed with an angled Thao needle, aspirated, and flushed with heparin. Next, a dressing was placed, and the procedure was concluded. All sponge, instrument, needle counts were correct x2. Condition: Stable.
[2020-01-21] MEDS ORDERED: HYDROCODONE/ACETAMINOPHEN 5-325 MG TABLET ONE (11:36)
--- NOTE | 2020-01-21 11:54 | RADIOLOGY REPORT (SQ) ---
EXAM DESCRIPTION: CHEST SINGLE VIEW IMAGES COMPLETED DATE/TIME: 01/21/2020 11:33 am REASON FOR STUDY: mediport placement COMPARISON: 01/21/2020 EXAM PARAMETERS: NUMBER OF VIEWS: One view. TECHNIQUE: Single frontal radiographic view of the chest acquired. RADIATION DOSE: NA LIMITATIONS: None. FINDINGS: LUNGS AND PLEURA: Minimal atelectasis now present the left base. Stxklu-S-Ieke is been pl aced. Tip overlies the innominate vein. No pneumothorax. MEDIASTINUM AND HILAR STRUCTURES: No masses. Contour normal. HEART AND VASCULAR STRUCTURES: Heart normal in size. Normal vasculature. BONES: No acute findings. HARDWARE: None in the chest. OTHER: No other significant finding. IMPRESSION: Left-sided Fdbrko-Z-Svae is in place. Tip overlies the innominate vein. No pneumothora x. TECHNICAL DOCUMENTATION: JOB ID: [id number] 2010 [employer]- All Rights Reserved Reading location - IP/workstation name: BRE
--- NOTE | 2020-01-21 12:04 | RADIOLOGY REPORT (SQ) ---
EXAM DESCRIPTION: FLUORO/CV PLACEMENT IMAGES COMPLETED DATE/TIME: 01/21/2020 11:14 am REASON FOR STUDY: PORTACATH LEFT SIDE C25.9 MALIGNANT NEOPLASM OF PANCREAS, UNSPECIFIED Z79.899 OT HER RESIDENTIAL (CURRENT) DRUG THERAPY COMPARISON: None. FLUOROSCOPY TIME: 0.7 minutes Spot images saved to PACS. TECHNIQUE: Intra-operative images acquired during surgical procedure to evaluate progress. NUMBER OF IMAGES: 1 LIMITATIONS: None. FINDINGS: Fluoroscopy was provided for intraoperative procedure. Please refer to the operative repo rt for further discussion. IMPRESSION: IMAGE(S) OBTAINED DURING PROCEDURE. COMMENT: Quality ID 145: Final reports for procedures using fluoroscopy that document radiation exp osure indices, or exposure time and number of fluorographic images (if radiation exposure indices are not available) Please consult full operative report of the attending physician for description of the procedure. TECHNICAL DOCUMENTATION: JOB ID: [id number] 2010 [employer]- All Rights Reserved Reading location - IP/workstation name: [email or web address]
[2020-01-21 13:04] VITALS: BP 140/63
[2020-01-21] MEDS ORDERED: LIDOCAINE 2% INJ-PF (20 MG/ML) 2 ML AMPUL ONE (13:51)
[2020-01-21] MEDS ORDERED: ONDANSETRON HCL INJ/PF 4 MG/2 ML SDV ONE (13:51)
--- NOTE | 2020-01-21 19:14 | EKG REPORT ---
SEVERITY:- BORDERLINE ECG - SINUS RHYTHM LVH BY VOLTAGE CONSIDER ANTERIOR INFARCT : Confirmed by: Gary Tran 21-Jan-2020 19:12:41
== END 2020-01-21 13:00 | disposition home or self-care (01) ==
LOC: OROUT 07:15
PROVIDERS: ATTEND Surgery
DX: C25.9 Malignant neoplasm of pancreas, unspecified (principal); Z79.899 Other long term (current) drug therapy; Z88.8 Allergy status to other drugs, medicaments and biological substances; E11.9 Type 2 diabetes mellitus without complications; Z86.73 Personal history of transient ischemic attack (TIA), and cerebral infarction without residual deficits; I10 Essential (primary) hypertension; Z79.84 Long term (current) use of oral hypoglycemic drugs; Z79.4 Long term (current) use of insulin; Z03.818 Encounter for observation for suspected exposure to other biological agents ruled out
CPT/HCPCS: 36561; 36415; 85025; 80048; 77001; 71045; 93005; 93010; 00532; C1788; U0003; A9270 ×2; J3010; J3490 ×2; J2405; J3480; J2704; J0690; J1642; C9803; 532; 87635; J1741; J7050

== ENCOUNTER → 2020-02-23 | Outpatient (CLI) | payer MEDICARE, BC ==
--- NOTE | 2020-02-23 09:25 | RADIOLOGY REPORT (SQ) ---
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 No oral contrast. Images reviewed with lung, soft tissue, and bone windows. Reconstructed coronal and sagittal MPR images reviewed. Delayed images for evaluation of the urinary system also acquired. All images stored on PACS. All CT scanners at this facility use dose modulation, iterative reconstruction, and/or weight based d osing when appropriate to reduce radiation dose to as low as reasonably achievable (ALARA). [facility]: Dose Right [facility]: CareDose [facility]: Dose Right [facility]: Teradose 4D [facility]: Smart [employer] CONTRAST TYPE AND DOSE: See chest RENAL FUNCTION: Creatinine 0.6 RADIATION DOSE: CT Rad equipment meets quality standard of care and radiation dose reduction techniq ues were employed. CTDIvol: 10.0 - 19.0 mGy. DLP: 1913 mGy-cm.. LIMITATIONS: None. FINDINGS: LOWER CHEST: See separate report of the CT of the chest. LIVER: Pneumobilia with interval placement of a metallic CBD stent. No definitive intrahepatic bilia ry ductal dilatation. No focal hepatic lesions. SPLEEN: Normal size. No focal lesions. PANCREAS: Again seen is pancreatic ductal dilation and pancreatic parenchymal atrophy. Grossly stabl e ill-defined area of hypoattenuation in the region of the pancreatic head. Celiac and SMA are uninv olved. Portal and splenic vein are widely patent. GALLBLADDER: Absent. ADRENAL GLANDS: No significant masses or asymmetry. RIGHT KIDNEY AND URETER: Cortical thinning. No discrete solid masses. No significant calcification s. No hydronephrosis or hydroureter. LEFT KIDNEY AND URETER: Cortical thinning. No discrete solid masses. Punctate nonobstructing lower pole stones. No hydronephrosis or hydroureter. AORTA AND VESSELS: No aneurysm. No dissection. Renal arteries, SMA, celiac without stenosis. RETROPERITONEUM: No retroperitoneal adenopathy, hemorrhage or masses. BOWEL AND PERITONEAL CAVITY: No evidence of intestinal obstruction. No focal bowel wall thickening. CBD stent projects into the descending duodenum lumen. Evidence of prior partial colon resection wi th anastomotic chain staple line at the transverse colon. APPENDIX: Surgically absent. PELVIS: Decompressed urinary bladder. No pelvic free fluid, adenopathy or mass. ABDOMINAL WALL: Small umbilical hernia containing fat and a knuckle of small bowel. Diastases recti. BONES: No acute bony abnormality. No discrete lytic or blastic osseous lesions. Lower lumbar spondy losis and a set arthropathy. Grade 1 anterolisthesis of L4 on L5. OTHER: No other significant finding. IMPRESSION: 1. Interval placement of a CBD stent with new pneumobilia. CBD stent appears in expect ed location. 2. Unchanged appearance of the pancreas. No celiac or SMA involvement. No discrete adenopathy or o ther evidence of metastatic disease. 3. No other evidence of acute intra-abdominal/pelvic process. See same-day chest CT for findings ab ove the diaphragm. TECHNICAL DOCUMENTATION: JOB ID: [id number] Quality ID # [id number]: Final reports with documentation of one or more dose reduction techniques (e.g., Au tomated exposure control, adjustment of the mA and/or kV according to patient size, use of iterative reconstruction technique) 2010 [email or web address]- All Rights Reserved Reading location - IP/workstation name: [email or web address]-
--- NOTE | 2020-02-23 09:32 | RADIOLOGY REPORT (SQ) ---
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 Images reviewed with lung, soft tissue and bone windows. Reconstructed coronal and sagittal MPR and MIP images reviewed. All images stored on PACS. All CT scanners at this facility use dose modulation, iterative reconstruction, and/or weight based d osing when appropriate to reduce radiation dose to as low as reasonably achievable (ALARA). [facility]: Dose Right [facility]: CareDose [facility]: Dose Right [facility]: Teradose 4D [facility]: [employer] CONTRAST TYPE AND DOSE: contrast/concentration: Isovue 350.00 mmol/ml; Total Contrast Delivered: 93. 0 ml; Total Saline Delivered: 40.0 ml RENAL FUNCTION: Creatinine 0.6 RADIATION DOSE: . LIMITATIONS: None. FINDINGS: LUNGS AND PLEURA: Stable linear 6 mm nodular opacity along the the posterior left upper lo be (image 18, series 4) no other discrete pulmonary nodules or masses. Minimal lingular scarring, st able no pleural effusion or pneumothorax. No airspace disease. HILAR AND MEDIASTINAL STRUCTURES: No identified masses or abnormal nodes. HEART AND VASCULAR STRUCTURES: Normal heart size. Trace pericardial effusion. Scattered coronary at herosclerosis. HARDWARE: Left-sided chest port with catheter tip at innominate vein. UPPER ABDOMEN: See separate report of the CT of the abdomen. THYROID AND OTHER SOFT TISSUES: No masses. No adenopathy. BONES: No acute bony abnormality. No discrete lytic or blastic osseous lesions. Dextroconvex thorac ic curvature. OTHER: No other significant finding. IMPRESSION: 1. Stable previous described linear 6 mm left upper lobe nodular opacity, likely scarri ng. No other evidence of intrathoracic metastatic disease. 2. No acute intrathoracic findings. TECHNICAL DOCUMENTATION: JOB ID: [id number] Quality ID # [id number]: Final reports with documentation of one or more dose reduction techniques (e.g., Au tomated exposure control, adjustment of the mA and/or kV according to patient size, use of iterative reconstruction technique) 2010 [employer]- All Rights Reserved Reading location - IP/workstation name: BRE
== END ==
LOC: RAD 07:26
PROVIDERS: ATTEND Internal Medicine
DX: C25.0 Malignant neoplasm of head of pancreas (principal)
CPT/HCPCS: 71260; 74177; 82565

== ENCOUNTER 2020-03-12 09:39 | Emergency (ER) | payer MEDICARE, BC ==
[2020-03-12 10:00] LABS: ABSOLUTE MONOCYTES (AUTO) 0.7 10^3/uL (0.1-1.4); ABSOLUTE NEUT (AUTO) 7.9 10^3/uL (1.7-8.2); BASOPHILS % (AUTO) 0.3 % (0-2); EOSINOPHILS % (AUTO) 0.5 % (0-6); HEMATOCRIT 33.5 % (36.0-47.0); HEMOGLOBIN 11.7 g/dL (12.0-15.5); LYMPHOCYTES % (AUTO) 10.2 % (13-45); MEAN CORPUSCULAR HEMOGLOBIN 33.6 pg (27.0-33.4); MEAN CORPUSCULAR HGB CONC 34.8 g/dL (32.0-36.0); MEAN CORPUSCULAR VOLUME 97 fl (80-97); MONOCYTES % (AUTO) 6.9 % (3-13); PLATELET COUNT 186 10^3/uL (150-450); RED BLOOD COUNT 3.48 10^6/uL (3.72-5.28); SEGMENTED NEUTROPHILS % (AUTO) 82.1 % (42-78); TOTAL CELLS COUNTED % (AUTO) 100 %; WHITE BLOOD COUNT 9.6 10^3/uL (4.0-10.5)
[2020-03-12 10:31] LABS: ALBUMIN 2.4 g/dL (3.5-5.0); ALKALINE PHOSPHATASE 144 U/L (38-126); ANION GAP 5 (5-19); ASPARTATE AMINO TRANSFERASE 21 U/L (14-36); BILIRUBIN,DIRECT 0.3 mg/dL (0.0-0.4); BILIRUBIN,TOTAL 0.8 mg/dL (0.2-1.3); BLOOD UREA NITROGEN 7 mg/dL (7-20); CALCIUM 8.8 mg/dL (8.4-10.2); CARBON DIOXIDE 29 mmol/L (22-30); CHLORIDE 100 mmol/L (98-107); GLUCOSE 76 mg/dL (75-110); POTASSIUM 3.3 mmol/L (3.6-5.0); TOTAL PROTEIN 4.9 g/dL (6.3-8.2)
--- NOTE | 2020-03-12 10:49 | RADIOLOGY REPORT (SQ) ---
EXAM DESCRIPTION: CHEST 2 VIEWS IMAGES COMPLETED DATE/TIME: 03/12/2020 10:12 am REASON FOR STUDY: chest pain COMPARISON: 01/21/2020 EXAM PARAMETERS: NUMBER OF VIEWS: two views TECHNIQUE: Digital Frontal and Lateral radiographic views of the chest acquired. RADIATION DOSE: NA LIMITATIONS: none FINDINGS: LUNGS AND PLEURA: No opacities, masses or pneumothorax. No pleural effusion. MEDIASTINUM AND HILAR STRUCTURES: No masses or contour abnormalities. HEART AND VASCULAR STRUCTURES: Heart normal size. No evidence for failure. BONES: No acute findings. HARDWARE: [id number]-[id number]-[id number] remains in place. OTHER: Metallic biliary stent is noted in place. IMPRESSION: NO ACUTE RADIOGRAPHIC FINDING IN THE CHEST. TECHNICAL DOCUMENTATION: JOB ID: [id number] 2010 [employer]- All Rights Reserved Reading location - IP/workstation name: BRE
[2020-03-12 10:54] LABS: CREATINE KINASE MB < 0.22 ng/mL (<4.55); TROPONIN I < 0.012 ng/mL
[2020-03-12 10:57] LABS: CREATINE KINASE < 20 U/L (30-135)
[2020-03-12] MEDS ORDERED: MAG HYDROX/AL HYDROX/SIMETH SUSP 30 ML UDCUP PO ONE ×2 (12:26→14:35)
[2020-03-12] MEDS ORDERED: LIDOCAINE 2% VISCOUS SOLN 15 ML UDCUP PO ONE ×2 (12:26→14:35)
--- NOTE | 2020-03-12 13:45 | ER Document Report ---
Entered by HUMPHREY GONZALEZ SCRIBE 03/12/20 1219 Acting as scribe for:SHANIA ROSSI MD ED General - General Chief Complaint: Chest Pain Stated Complaint: CHEST PAIN Time Seen by Provider: 03/12/20 12:03 Primary Care Provider: EUGENE KELLY NP [Primary Care Provider] - Follow up as needed Mode of Arrival: Ambulatory Information source: Patient Notes: This 80-year-old female patient presents to the emergency department today with complaints of epigastric abdominal pain. Patient was diagnosed with pancreatic cancer in November and is on immunotherapy (Keytruda). Patient states she has had this upper abdominal pain for the last 3 days, mentioning that it first began in her back intermittently and since yesterday it has been constant in her back and her abdomen. Patient is nauseated but denies any vomiting or fevers. TRAVEL OUTSIDE OF THE [place] IN LAST 30 DAYS: No - Related Data Allergies/Adverse Reactions: ibuprofen [From Motrin] Allergy (Mild, Verified 01/21/20 07:54) CRAMPING, NAUSEA allopurinol [Allopurinol] Adverse Reaction (Intermediate, Verified 01/21/20 07:54) COUGH Past Medical History - General Information source: Patient - Social History Smoking Status: Never Smoker Cigarette use (# per day): No Frequency of alcohol use: None Drug Abuse: None Lives with: Family Family History: Reviewed & Not Pertinent - Past Medical History Cardiac Medical History: Reports: Hx Hypercholesterolemia, Hx Hypertension, Hx Heart Murmur Pulmonary Medical History: Reports: Hx Asthma, Hx Bronchitis - 2010, Hx Sleep Apnea Neurological Medical History: Reports: Hx Cerebrovascular Accident - SILENT STROKE ON MRI 2012 Endocrine Medical History: Reports: Hx Diabetes Mellitus Type 2 Malignancy Medical History: Reports: Hx Pancreatic Cancer GI Medical History: Reports: Hx Gastroesophageal Reflux Disease Musculoskeletal Medical History: Reports Hx Arthritis - hands, neck, knees Psychiatric Medical History: Reports: Hx Depression Past Surgical History: Reports: Hx Abdominal Surgery, Hx Appendectomy, Hx Cholecystectomy, Hx Hysterectomy, Hx Tonsillectomy - Immunizations Hx Diphtheria, Pertussis, Tetanus Vaccination: No Hx Pneumococcal Vaccination: 01/08/12 Review of Systems - Review of Systems Constitutional: denies: Fever EENT: No symptoms reported Cardiovascular: No symptoms reported Respiratory: No symptoms reported Gastrointestinal: See HPI, Abdominal pain - upper, Nausea. denies: Vomiting Genitourinary: No symptoms reported Female Genitourinary: No symptoms reported Musculoskeletal: No symptoms reported Skin: No symptoms reported Hematologic/Lymphatic: No symptoms reported Neurological/Psychological: No symptoms reported -: Yes All other systems reviewed and negative Physical Exam - Vital signs Vitals: Pulse Ox 98 03/12/20 09:43 - Notes Notes: Physical Exam: General: Alert, appears well. HEENT: Normocephalic. Atraumatic. PERRL. Extraocular movements intact. Oropharynx clear. Neck: Supple. Non-tender. Respiratory: No respiratory distress. Clear and equal breath sounds bilaterally. Cardiovascular: Regular rate and rhythm. Abdominal: Epigastric tenderness to palpation. Non-tender. No distension. Normal Bowel Sounds. Back: No gross abnormalities. Extremities: Moves all four extremities. Upper extremities: Normal inspection. Normal ROM. Lower extremities: Normal inspection. No edema. Normal ROM. Neurological: Normal cognition. AAOx4. Normal speech. Psychological: Normal affect. Normal Mood. Skin: Warm. Dry. Normal color. Course - Re-evaluation Re-evalutation: 03/12/20 14:35 The patient did receive relief from her epigastric discomfort after drinking the GI cocktail. She states after she drank it, then the pain seemed to move into her back. At this time the epigastric discomfort is starting to return and she is tender to palpate there again. Her lab work shows normal bilirubin and normal lipase levels. She does report a history of GERD. We will repeat her GI cocktail and reevaluate. 03/12/20 15:26 I reevaluated the patient about 15 minutes after the second GI cocktail. She states this time it made the pain in her back go away along with the pain in the front. On palpation I am able to palpate considerably deeper into her epigastric abdomen before eliciting discomfort. The patient's immediate response to GI cocktails on each occasion suggest that this will be a gastroesophageal reflux issue more likely than related to her pancreatic cancer. She was recently started on potassium replacement medication, and I wonder if this may be contributing to her new reflux problems. 03/12/20 15:28 - Vital Signs Vital signs: Temp Pulse Resp BP Pulse Ox 16 119/60 100 03/12/20 09:50 03/12/20 09:50 03/12/20 09:50 - Laboratory Result Diagrams: 03/12/20 09:44 03/12/20 09:44 Laboratory results interpreted by me: 03/12/20 03/12/20 03/12/20 09:44 09:44 09:44 RBC 3.48 L Hgb 11.7 L Hct 33.5 L MCH 33.6 H RDW 15.0 H Lymph % (Auto) 10.2 L Seg Neutrophils % 82.1 H Sodium 133.8 L Potassium 3.3 L Creatinine 0.50 L Alkaline Phosphatase 144 H Creatine Kinase < 20 L Total Protein 4.9 L Albumin 2.4 L Lipase 13.3 L Ur Leukocyte Esterase 03/12/20 13:08 RBC Hgb Hct MCH RDW Lymph % (Auto) Seg Neutrophils % Sodium Potassium Creatinine Alkaline Phosphatase Creatine Kinase Total Protein Albumin Lipase Ur Leukocyte Esterase SMALL H - Diagnostic Test Radiology reviewed: Image reviewed, Reports reviewed - Chest x-ray does not show acute radiographic changes. - EKG Interpretation by Me EKG shows normal: Sinus rhythm, Declo, Intervals, QRS Complexes. abnormal: ST-T Waves - Borderline anterior T abnormalities Rate: Normal - 67 Rhythm: NSR Declo/QRS: Left axis deviation When compared to previous EKG there are: No significant change - Consults Dr. Anderson Time consulted: 15:20 Consulted provider: follow-up in office Discharge - Discharge Clinical Impression: Epigastric abdominal pain Gastroesophageal reflux disease Qualifiers: Esophagitis presence: esophagitis presence not specified Qualified Code(s): K21.9 - Gastro-esophageal reflux disease without esophagitis Condition: Stable Disposition: HOME, SELF-CARE Additional Instructions: Reflux Disease (GERD) Gastro-Esophageal Reflux Disease (GERD) is caused by stomach acid refluxing back up into the esophagus. The valve at the end of the esophagus may be weak. This is common in persons with a hiatal hernia. GERD symptoms can include indigestion, chest pain, heartburn, or food "sticking." Certain foods, alcohol, and aspirin can make GERD worse. Treatment depends on the severity. Usually, antacids or acid-suppressing medicines are used. When the esophagus is acutely inflamed, the physician will often prescribe membrane-protective drugs such as Carafate. Some patients benefit from medication such as Reglan that tightens the valve at the top of the stomach. Avoid those foods that bring on your symptoms. For many people, these foods are coffee, chocolate, onions, garlic, and carbonated drinks. Don't use alcohol, aspirin, caffeine, or tobacco. Don't eat late at night -- within 4 martha rs of bedtime. Don't over-eat. If necessary, elevate the head of your bed about 4 inches so that stomach acid will not roll up into your esophagus. Call the doctor if you develop severe chest pain, inability to swallow fluids, fever, or worsening symptoms. Your examination and treatment in the emergency room today suggest that your epigastric discomfort is most likely due to acid reflux. Take the omeprazole as prescribed once daily. Eat a bland diet. Take antacids between meals and at bedtime. Take your potassium tablets with a large glass of milk. Follow-up with Dr. Anderson Sunday if not feeling better. RETURN TO THE EMERGENCY ROOM IF ANY NEW OR WORSENING SYMPTOMS. Prescriptions: Omeprazole 20 mg PO DAILY #30 tablet. Referrals: EUGENE KELLY, SUPERVISOR DOG LICENSE OFFICER [Primary Care Provider] - Follow up as needed I personally performed the services described in the documentation, reviewed and edited the documentation which was dictated to the scribe in my presence, and it accurately records my words and actions.
[2020-03-12 13:48] LABS: APPEARANCE,URINE CLEAR; BILIRUBIN,URINE NEGATIVE (NEGATIVE); COLOR,URINE YELLOW; GLUCOSE, URINE NEGATIVE (NEGATIVE); KETONES,URINE NEGATIVE (NEGATIVE); LEUKOCYTE ESTERASE,URINE SMALL (NEGATIVE); NITRITE,URINE NEGATIVE (NEGATIVE); PROTEIN,URINE NEGATIVE (NEGATIVE); URINE SPECIFIC GRAVITY 1.004; UROBILINOGEN,URINE NEGATIVE mg/dL (<2.0)
[2020-03-12 16:11] VITALS: BP 131/68
--- NOTE | 2020-03-13 06:57 | EKG REPORT ---
SEVERITY:- BORDERLINE ECG - SINUS RHYTHM LVH BY VOLTAGE : Confirmed by: David Antonio MD 13-Mar-2020 06:56:32
== END 2020-03-12 16:13 | disposition home or self-care (01) ==
LOC: ER 09:39
DX: K21.9 Gastro-esophageal reflux disease without esophagitis (principal); R10.13 Epigastric pain; C25.9 Malignant neoplasm of pancreas, unspecified; R07.9 Chest pain, unspecified; E78.00 Pure hypercholesterolemia, unspecified; I10 Essential (primary) hypertension; E11.9 Type 2 diabetes mellitus without complications; Z88.6 Allergy status to analgesic agent; Z90.49 Acquired absence of other specified parts of digestive tract
CPT/HCPCS: 93005; 99285; 36415; 82553; 82550; 83690; 85025; 80053; 81001; 84484; 71046; 93010; J3490; A9270

== ENCOUNTER 2020-03-16 16:27 | Emergency (ER) | payer MEDICARE, BC ==
--- NOTE | 2020-03-16 17:50 | EKG REPORT ---
SEVERITY:- BORDERLINE ECG - SINUS RHYTHM BORDERLINE LEFT AXIS DEVIATION BORDERLINE R WAVE PROGRESSION, ANTERIOR LEADS BORDERLINE PROLONGED QT INTERVAL : Confirmed by: Gary Tran 16-Mar-2020 17:49:19
--- NOTE | 2020-03-16 18:07 | ER Document Report ---
ED Dizziness/Weakness - General Chief Complaint: Irregular Pulse Stated Complaint: WEAKNESS Time Seen by Provider: 03/16/20 18:05 Primary Care Provider: EUGENE KELLY NP [COMMUNITY BASED STAFF] - Follow up as needed Information source: Patient Notes: 05/16/19 16:47 - ED Nursing Note by JENNIE CARR Acct Num: [id number] : 1940 Patient Age: 80 Pt. came in today via EMS, C/O of elevated HR. EMS report given that Pt. had a HR of 155 and was complaining of pain all over. Pt. is currently receiving treatment for Pancreatic Cancer. Pt. ia A & O X3, breathing is even and unlabored, HR was 88 upon placing Pt. on monitor. Pt. is ambulatory with assi stance. MY NOTES 80-year-old female arrives by EMS after having diffuse abdominal pain since last Sunday. She was seen here and had CT at that time and is followed up by Dr. Noriega. She actually "had a blood sugar of 33 yesterday morning and called Dr. Noriega and he advised taking some Dulcolax. " Patient reports and she had a GI cocktail here in the ER she has had diffusely cramping abdominal pain. Patient had some Ensure prior to coming into the hospital. Patient reports her brother has pancreatic cancer as well. She is followed by oncologist Dr. Noriega. She has been here in the past for pancreatic cancer that was discovered by Dr. Vega here in the ER last November. Patient also has a history of low magnesium low potassium low blood pressure and UTI. TRAVEL OUTSIDE OF THE [place] IN LAST 30 DAYS: No - HPI Patient complains to provider of: Weakness Onset: Last week Onset/Duration: Sudden, Persistent Quality of pain: Achy Severity: Moderate Pain Level: 2 Associated symptoms: Weak all over Baseline gait: Walks w/o assistance - Related Data Allergies/Adverse Reactions: ibuprofen [From Motrin] Allergy (Mild, Verified 03/16/20 16:42) CRAMPING, NAUSEA allopurinol [Allopurinol] Adverse Reaction (Intermediate, Verified 03/16/20 16:42) COUGH Past Medical History - General Information source: Patient - Social History Smoking Status: Never Smoker Cigarette use (# per day): No Chew tobacco use (# tins/day): No Smoking Education Provided: No Frequency of alcohol use: None Drug Abuse: None Lives with: Family Family History: Reviewed & Not Pertinent Patient has suicidal ideation: No Patient has homicidal ideation: No - Past Medical History Cardiac Medical History: Reports: Hx Hypercholesterolemia, Hx Hypertension, Hx Heart Murmur Denies: Hx Heart Attack Pulmonary Medical History: Reports: Hx Asthma, Hx Bronchitis - 2010, Hx Sleep Apnea Denies: Hx Tuberculosis Neurological Medical History: Reports: Hx Cerebrovascular Accident - SILENT STROKE ON MRI 2012. Denies: Hx Seizures Endocrine Medical History: Reports: Hx Diabetes Mellitus Type 2 Malignancy Medical History: Reports: Hx Pancreatic Cancer GI Medical History: Reports: Hx Gastroesophageal Reflux Disease. Denies: Hx Hepatitis, Hx Hiatal Hernia, Hx Ulcer Musculoskeletal Medical History: Reports Hx Arthritis - hands, neck, knees Psychiatric Medical History: Reports: Hx Depression Infectious Medical History: Denies: Hx Hepatitis Past Surgical History: Reports: Hx Abdominal Surgery, Hx Appendectomy, Hx Cholecystectomy, Hx Hysterectomy, Hx Tonsillectomy. Denies: Hx Mastectomy, Hx Open Heart Surgery, Hx Pacemaker - Immunizations Hx Diphtheria, Pertussis, Tetanus Vaccination: No Hx Pneumococcal Vaccination: 01/08/12 Review of Systems - Review of Systems Constitutional: See HPI, Weakness, Recent illness EENT: No symptoms reported Cardiovascular: No symptoms reported Respiratory: No symptoms reported Gastrointestinal: See HPI, Abdomen distended, Abdominal pain Genitourinary: No symptoms reported Female Genitourinary: No symptoms reported Musculoskeletal: No symptoms reported Skin: No symptoms reported Hematologic/Lymphatic: No symptoms reported Neurological/Psychological: See HPI, Weakness -: Yes All other systems reviewed and negative Physical Exam - Vital signs Vitals: Temp 98.3 F 03/16/20 16:27 Interpretation: Normal - General General appearance: Appears well, Alert - HEENT Head: Normocephalic, Atraumatic Eyes: Normal Pupils: PERRL - Respiratory Respiratory status: No respiratory distress Chest status: Nontender Breath sounds: Normal Chest palpation: Normal - Cardiovascular Rhythm: Regular Heart sounds: Normal auscultation Murmur: No - Abdominal Inspection: Normal Distension: Distended Bowel sounds: Hypoactive Tenderness: Tender - Diffusely tender upper quadrants on palpation Organomegaly: No organomegaly - Rectal Hemorrhoids: Other - deferred - Genitourinary Bimanuel exam: Other - deferred - Back Back: Normal, Nontender - Extremities General upper extremity: Normal inspection, Nontender, Normal color, Normal ROM, Normal temperature General lower extremity: Normal inspection, Nontender, Normal color, Normal ROM, Normal temperature, Normal weight bearing. No: James's sign - Neurological Neuro grossly intact: Yes Cognition: Normal Orientation: AAOx4 [place] Coma Scale Eye Opening: Spontaneous Reggie Coma Scale Verbal: Oriented Reggie Coma Scale Motor: Obeys Commands [place] Coma Scale Total: 15 Speech: Normal Motor strength normal: LUE, RUE, LLE, RLE Sensory: Normal - Psychological Associated symptoms: Normal affect, Normal mood - Skin Skin Temperature: Warm Skin Moisture: Dry Skin Color: Normal Course - Vital Signs Vital signs: Temp Pulse Resp BP Pulse Ox 99 F 83 18 151/65 H 95 03/16/20 23:39 03/16/20 23:39 03/16/20 23:39 03/16/20 23:39 03/16/20 23:39 - Laboratory Result Diagrams: 03/16/20 16:38 03/16/20 16:38 Laboratory results interpreted by me: 03/16/20 03/16/20 03/16/20 16:38 16:38 17:10 RBC 3.32 L Hgb 10.9 L Hct 32.2 L RDW 15.0 H Lymph % (Auto) 9.5 L Seg Neutrophils % 82.5 H Sodium 134.6 L Potassium 3.1 L Chloride 97 L Creatinine 0.47 L Glucose 48 L Alkaline Phosphatase 137 H Creatine Kinase < 20 L Total Protein 5.0 L Albumin 2.4 L Urine Ketones TRACE H - Diagnostic Test Radiology reviewed: Reports reviewed Critical Care Note - Critical Care Note Comments: Oscar called around patient arrival and about the time x-rays were done of her abdomen. He advised a enema for this patient. This was done but patient continued to have some epigastric pain. We then tried some Toradol and Compazine IV. Discharge - Discharge Clinical Impression: Epigastric abdominal pain, Dehydration Pancreas cancer Qualifiers: Pancreatic malignancy location: unspecified Qualified Code(s): C25.9 - Malignant neoplasm of pancreas, unspecified Condition: Stable Disposition: HOME, SELF-CARE Instructions: Abdominal Pain ([facility]), Toradol Injection ([facility]) Additional Instructions: Follow-up with Dr. Anderson and take medicines as directed return to ER as needed encourage fluids Prescriptions: Simethicone/Sod Bicarb/Cit AC [E-Z-Gas II Eff Granules] 1 each PO BID PRN #10 gran.ef.pk PRN Reason: Famotidine [Pepcid 20 mg Tablet] 20 mg PO DAILY #12 tablet Referrals: EUGENE KELLY MODEL DRESSER [COMMUNITY BASED STAFF] - Follow up as needed
[2020-03-16] MEDS ORDERED: NORMAL SALINE 1000 ML 1,000 ML IV ONE (18:27)
[2020-03-16] MEDS ORDERED: MORPHINE SULFATE 10 MG/ML INJ IV ONE (18:28)
--- NOTE | 2020-03-16 19:18 | RADIOLOGY REPORT (SQ) ---
EXAM DESCRIPTION: KUB/ABDOMEN (SINGLE VIEW) IMAGES COMPLETED DATE/TIME: 03/16/2020 7:04 pm REASON FOR STUDY: diffuse abd pain COMPARISON: None. NUMBER OF VIEWS: One view. TECHNIQUE: Supine radiographic image of the abdomen acquired. LIMITATIONS: None. FINDINGS: BOWEL GAS PATTERN: Normal bowel gas pattern. No dilated loops. CALCIFICATIONS: No suspicious calcifications. SOFT TISSUES: No gross mass or suggestion of organomegaly. HARDWARE: Common bile duct stent. BONES: Scoliosis and associated degenerative changes in the lumbar spine. OTHER: No other significant finding. IMPRESSION: NO RADIOGRAPHIC EVIDENCE FOR ACUTE ABDOMINAL DISEASE. TECHNICAL DOCUMENTATION: JOB ID: [id number] [email or web address]- All Rights Reserved Reading location - IP/workstation name: [email or web address]
[2020-03-16 19:33] LABS: APPEARANCE,URINE CLEAR; BILIRUBIN,URINE NEGATIVE (NEGATIVE); COLOR,URINE STRAW; GLUCOSE, URINE NEGATIVE (NEGATIVE); KETONES,URINE TRACE mg/dL (NEGATIVE); LEUKOCYTE ESTERASE,URINE NEGATIVE (NEGATIVE); NITRITE,URINE NEGATIVE (NEGATIVE); PROTEIN,URINE NEGATIVE (NEGATIVE); URINE SPECIFIC GRAVITY 1.004; UROBILINOGEN,URINE NEGATIVE mg/dL (<2.0)
[2020-03-16 19:36] LABS: ABSOLUTE LYMPHOCYTES (AUTO) 0.6 10^3/uL (0.5-4.7); ABSOLUTE MONOCYTES (AUTO) 0.4 10^3/uL (0.1-1.4); ABSOLUTE NEUT (AUTO) 5.1 10^3/uL (1.7-8.2); BASOPHILS % (AUTO) 0.3 % (0-2); EOSINOPHILS % (AUTO) 0.4 % (0-6); HEMATOCRIT 32.2 % (36.0-47.0); HEMOGLOBIN 10.9 g/dL (12.0-15.5); LYMPHOCYTES % (AUTO) 9.5 % (13-45); MEAN CORPUSCULAR HEMOGLOBIN 32.9 pg (27.0-33.4); MEAN CORPUSCULAR HGB CONC 33.9 g/dL (32.0-36.0); MEAN CORPUSCULAR VOLUME 97 fl (80-97); MONOCYTES % (AUTO) 7.3 % (3-13); PLATELET COUNT 176 10^3/uL (150-450); RED BLOOD COUNT 3.32 10^6/uL (3.72-5.28); SEGMENTED NEUTROPHILS % (AUTO) 82.5 % (42-78); TOTAL CELLS COUNTED % (AUTO) 100 %; WHITE BLOOD COUNT 6.1 10^3/uL (4.0-10.5)
[2020-03-16 19:45] LABS: ALBUMIN 2.4 g/dL (3.5-5.0); ALKALINE PHOSPHATASE 137 U/L (38-126); ANION GAP 8 (5-19); ASPARTATE AMINO TRANSFERASE 20 U/L (14-36); BILIRUBIN,DIRECT 0.3 mg/dL (0.0-0.4); BILIRUBIN,TOTAL 0.6 mg/dL (0.2-1.3); BLOOD UREA NITROGEN 10 mg/dL (7-20); CALCIUM 8.9 mg/dL (8.4-10.2); CARBON DIOXIDE 30 mmol/L (22-30); CHLORIDE 97 mmol/L (98-107); POTASSIUM 3.1 mmol/L (3.6-5.0)
[2020-03-16 19:47] LABS: CREATINE KINASE < 20 U/L (30-135); GLUCOSE 48 mg/dL (75-110)
[2020-03-16 20:01] LABS: TROPONIN I < 0.012 ng/mL
[2020-03-16] MEDS ORDERED: MISOPROSTOL 0.2 MG TABLET PO ONE (20:50)
[2020-03-16] MEDS ORDERED: SIMETHICONE 80 MG TAB.CHEW PO ONE (22:22)
[2020-03-17] MEDS ORDERED: PROCHLORPERAZINE EDISYLATE INJ 10 MG/2 ML VIAL IV ONE (00:35)
[2020-03-17] MEDS ORDERED: KETOROLAC TROMETHAMINE INJ/PF 30 MG/1 ML SDV IV ONE (00:35)
[2020-03-17 03:23] VITALS: BP 131/77
== END 2020-03-17 03:24 | disposition home or self-care (01) ==
LOC: ER 16:27
DX: C25.9 Malignant neoplasm of pancreas, unspecified (principal); R10.13 Epigastric pain; E86.0 Dehydration; R00.0 Tachycardia, unspecified; R53.1 Weakness; R10.9 Unspecified abdominal pain; Z88.8 Allergy status to other drugs, medicaments and biological substances; I10 Essential (primary) hypertension; J45.909 Unspecified asthma, uncomplicated; E11.9 Type 2 diabetes mellitus without complications
CPT/HCPCS: 93005; 99285; 96361; 96374; 96375; 36415; 82553; 82550; 85025; 80053; 81001; 84484; 74018; 93010; A9270 ×2; J1885; J2270; J0780; J7030

== ENCOUNTER 2020-03-19 22:28 | Inpatient (IN) | payer MEDICARE, BC ==
--- NOTE | 2020-03-20 00:34 | ER Document Report ---
ED General - General Chief Complaint: Fall Stated Complaint: FALL Time Seen by Provider: 03/20/20 00:18 Notes: Patient is a 80-year-old female who comes emergency department by EMS from home for chief complaint of symptoms that started 2 nights ago where she had slurred speech, she lost most of the vision in her right eye, and she was very unsteady and could not get up off of the floor. She states that she did not have a fall injury. She states that she was unable to get herself off of the floor and she lay on the floor from Sunday evening until this evening (reportedly 2 days). She denies focal numbness or weakness at this time. Patient has a history of pancreatic cancer and is following with Dr. Anderson, currently on immunologic therapy but not chemotherapy. She is not on radiation therapy. She denies metastasis. She denies fever or vomiting. Remaining history includes hyperlipidemia, hypertension, type 2 diabetes. TRAVEL OUTSIDE OF THE [place] IN LAST 30 DAYS: No - Related Data Allergies/Adverse Reactions: ibuprofen [From Motrin] Allergy (Mild, Verified 03/16/20 16:42) CRAMPING, NAUSEA allopurinol [Allopurinol] Adverse Reaction (Intermediate, Verified 03/16/20 16:42) COUGH Past Medical History - General Information source: Patient - Social History Smoking Status: Never Smoker Frequency of alcohol use: None Drug Abuse: None Lives with: Alone Family History: Reviewed & Not Pertinent Patient has homicidal ideation: No - Past Medical History Cardiac Medical History: Reports: Hx Hypercholesterolemia, Hx Hypertension, Hx Heart Murmur Denies: Hx Heart Attack Pulmonary Medical History: Reports: Hx Asthma, Hx Bronchitis - 2010, Hx Sleep Apnea Denies: Hx Tuberculosis Neurological Medical History: Reports: Hx Cerebrovascular Accident - SILENT STROKE ON MRI 2012. Denies: Hx Seizures Endocrine Medical History: Reports: Hx Diabetes Mellitus Type 2 Malignancy Medical History: Reports: Hx Pancreatic Cancer GI Medical History: Reports: Hx Gastroesophageal Reflux Disease. Denies: Hx Hepatitis, Hx Hiatal Hernia, Hx Ulcer Musculoskeletal Medical History: Reports Hx Arthritis - hands, neck, knees Psychiatric Medical History: Reports: Hx Depression Infectious Medical History: Denies: Hx Hepatitis Past Surgical History: Reports: Hx Abdominal Surgery, Hx Appendectomy, Hx Cholecystectomy, Hx Hysterectomy, Hx Tonsillectomy. Denies: Hx Mastectomy, Hx Open Heart Surgery, Hx Pacemaker - Immunizations Hx Diphtheria, Pertussis, Tetanus Vaccination: No Hx Pneumococcal Vaccination: 01/08/12 Review of Systems - Review of Systems Constitutional: See HPI EENT: No symptoms reported Cardiovascular: No symptoms reported Respiratory: No symptoms reported Gastrointestinal: No symptoms reported Genitourinary: No symptoms reported Female Genitourinary: No symptoms reported Musculoskeletal: No symptoms reported Skin: No symptoms reported Hematologic/Lymphatic: No symptoms reported Neurological/Psychological: See HPI Physical Exam - Vital signs Vitals: Temp 97.6 F 03/19/20 22:29 - Notes Notes: GENERAL: Alert, interacts well. No acute distress. HEAD: Normocephalic, atraumatic. EYES: Pupils equal, round, and reactive to light. Extraocular movements intact. Peripheral vision noticeably reduced especially laterally in the right eye, vision is blurry with significant loss on visual acuity testing, unremarkable eye exam otherwise. No swelling, injection, photophobia, signs of trauma, or other concerning findings. Left eye is normal. ENT: Oral mucosa moist, tongue midline. Oropharynx unremarkable. Airway patent. NECK: Full range of motion. Supple. Trachea midline. No lymphadenopathy. LUNGS: Clear to auscultation bilaterally, no wheezes, rales, or rhonchi. No respiratory distress. Non-tender chest wall. HEART: Regular rate and rhythm. No murmur ABDOMEN: Soft, non-tender. Non-distended. EXTREMITIES: Moves all 4 extremities spontaneously. No edema, normal radial and dorsalis pedis pulses bilaterally. No cyanosis. BACK: no cervical, thoracic, lumbar midline tenderness. No saddle anesthesia, normal distal neurovascular exam. Moves all extremities in full range of motion. NEUROLOGICAL: Alert and oriented x3. Normal speech. Cranial nerves II through XII grossly intact. Strength 5/5 in all extremities. PSYCH: Normal affect, normal mood. SKIN: Warm, dry, normal turgor. No rashes or lesions noted. Course - Re-evaluation Re-evalutation: Patient reporting acute loss of vision in the right eye. She has no eye pain or symptoms, she states that her vision is blurry. She also has loss of peripheral field especially laterally. She denies headache, has no tenderness over the temporal bone, has not had trauma. Symptoms started at the same time as patient's reported now resolved slurred speech and ataxia. Patient states she is still unsteady on her feet. Patient's vital signs are unremarkable, she is well-appearing, her evaluation is otherwise unremarkable. CBC shows my leukocytosis, mild anemia, nonspecific. Chemistry unremarkable. Kidney function unremarkable. CK is not concerning elevated. Troponin is unremarkable. Urine showing dehydration, nonspecific otherwise. Patient has been given IV fluids. Chest x-ray unremarkable. CT of the head without acute findings. I discussed with patient. Because of her acute neurologic reported deficits, discussed with Dr. Kenny, recommends hospitalization for MRI, monitoring, restratification. Patient states appreciation and agreement. 03/20/[address] Resendez, hospitalist, patient accepted to telemetry observation. - Vital Signs Vital signs: Temp Pulse Resp BP Pulse Ox 97.6 F 18 136/67 H 98 03/19/20 22:29 03/20/20 06:01 03/20/20 06:00 03/20/20 06:01 - Laboratory Result Diagrams: 03/20/20 06:48 03/19/20 23:14 Laboratory results interpreted by me: 03/19/20 03/19/20 03/19/20 23:14 23:14 23:14 WBC 10.7 H RBC 3.65 L Hgb 11.8 L Hct 35.9 L MCV 98 H RDW 15.3 H Seg Neuts % (Manual) 92 H Lymphocytes % (Manual) 5 L Abs Neuts (Manual) 9.8 H PT 15.8 H Carbon Dioxide 11 L Anion Gap 26 H Glucose 158 H Alkaline Phosphatase 146 H Total Protein 5.1 L Albumin 2.5 L Urine Protein Urine Ketones Urine Blood Ur Leukocyte Esterase 03/20/20 00:50 WBC RBC Hgb Hct MCV RDW Seg Neuts % (Manual) Lymphocytes % (Manual) Abs Neuts (Manual) PT Carbon Dioxide Anion Gap Glucose Alkaline Phosphatase Total Protein Albumin Urine Protein 30 H Urine Ketones 80 H Urine Blood SMALL H Ur Leukocyte Esterase SMALL H - EKG Interpretation by Me Additional EKG results interpreted by me: EKG shows sinus rhythm and a rate of 98, left axis deviation, QTC 465, no T wave inversions or ST segment changes in consecutive leads Discharge - Discharge Clinical Impression: Visual loss, Ataxia, Slurred speech, Weakness Condition: Stable Disposition: ADMITTED OBSERVATION Admitting Provider: Mal (Hospitalist) Unit Admitted: [facility]
[2020-03-20 00:50] LABS: INTERNATIONAL RATION (INR) 1.24; PROTHROMBIN TIME 15.8 SEC (11.4-15.4)
[2020-03-20 00:54] LABS: HEMATOCRIT 35.9 % (36.0-47.0); HEMOGLOBIN 11.8 g/dL (12.0-15.5); MEAN CORPUSCULAR HEMOGLOBIN 32.4 pg (27.0-33.4); MEAN CORPUSCULAR HGB CONC 32.9 g/dL (32.0-36.0); MEAN CORPUSCULAR VOLUME 98 fl (80-97); PLATELET COUNT 241 10^3/uL (150-450); RED BLOOD COUNT 3.65 10^6/uL (3.72-5.28); RED CELL DISTRIBUTION WIDTH 15.3 % (11.5-14.0); WHITE BLOOD COUNT 10.7 10^3/uL (4.0-10.5)
[2020-03-20 01:03] LABS: ALBUMIN 2.5 g/dL (3.5-5.0); ALKALINE PHOSPHATASE 146 U/L (38-126); ASPARTATE AMINO TRANSFERASE 24 U/L (14-36); BILIRUBIN,DIRECT 0.4 mg/dL (0.0-0.4); BILIRUBIN,TOTAL 0.6 mg/dL (0.2-1.3); BLOOD UREA NITROGEN 9 mg/dL (7-20); CALCIUM 9.2 mg/dL (8.4-10.2); CARBON DIOXIDE 11 mmol/L (22-30); CREATINE KINASE 62 U/L (30-135); GLUCOSE 158 mg/dL (75-110); POTASSIUM 3.6 mmol/L (3.6-5.0); TOTAL PROTEIN 5.1 g/dL (6.3-8.2)
[2020-03-20 01:08] LABS: ANION GAP 26 (5-19); CHLORIDE 102 mmol/L (98-107)
--- NOTE | 2020-03-20 01:14 | RADIOLOGY REPORT (SQ) ---
CLINICAL HISTORY: weakness COMPARISON: 01/21/2020. TECHNIQUE: XR CHEST 1 VIEW 03/20/2020 12:31 AM CERTIFIED ORTHOTIST/PEDORTHIST FINDINGS: Cardiac silhouette is normal in size. Lungs are clear without consolidation, atelectasis, mass or edema. There is no pleural effusion. There is no pneumothorax. There are no acute osseous findings. Left chest port is unchanged. IMPRESSION: Clear lungs.
[2020-03-20 01:15] LABS: APPEARANCE,URINE CLOUDY; BILIRUBIN,URINE NEGATIVE (NEGATIVE); CALCIUM OXALATE CRYSTALS,URINE RARE /HPF; COLOR,URINE YELLOW; GLUCOSE, URINE NEGATIVE (NEGATIVE); KETONES,URINE 80 mg/dL (NEGATIVE); LEUKOCYTE ESTERASE,URINE SMALL (NEGATIVE); NITRITE,URINE NEGATIVE (NEGATIVE); PROTEIN,URINE 30 mg/dL (NEGATIVE); URINE SPECIFIC GRAVITY 1.016; UROBILINOGEN,URINE NEGATIVE mg/dL (<2.0)
--- NOTE | 2020-03-20 01:15 | RADIOLOGY REPORT (SQ) ---
CLINICAL HISTORY: loss of vision right eye; slurred speech, ataxia COMPARISON: None. TECHNIQUE: CT HEAD WITHOUT IV CONTRAST on 03/20/2020 12:32 AM STATEMENT CLERK This exam was performed according to our departmental dose-optimization program, which includes automated exposure control, adjustment of the mA and/or kV according to patient size and/or use of iterative reconstruction technique. FINDINGS: There is no acute hemorrhage, mass effect or midline shift. There is a right frontal area of encephalomalacia. There is no hydrocephalus. There is no significant volume loss for age. The calvarium is intact. Orbits and globes are unremarkable. The paranasal sinuses are clear. Mastoid air cells are clear. IMPRESSION: No acute intracranial findings.
[2020-03-20 01:21] LABS: ABSOLUTE LYMPHOCYTES# (MANUAL) 0.5 10^3/uL (0.5-4.7); ABSOLUTE MONOCYTES # (MANUAL) 0.3 10^3/uL (0.1-1.4); BASOPHILS % (MANUAL) 0 % (0-2); EOSINOPHILS % (MANUAL) 0 % (0-6); LYMPHOCYTES % (MANUAL) 5 % (13-45); MONOCYTES % (MANUAL) 3 % (3-13); SEGMENTED NEUTROPHILS % (MAN) 92 % (42-78); TOTAL CELLS COUNTED 100
[2020-03-20 01:22] LABS: ANISOCYTOSIS SLIGHT; PLATELET COMMENT ADEQUATE; TOXIC GRANULATION SLIGHT; TOXIC VACUOLATION PRESENT
[2020-03-20] MEDS ORDERED: NORMAL SALINE 1000 ML 1,000 ML IV ONE (01:31)
[2020-03-20] MEDS ORDERED: CEFTRIAXONE 1 GM/D5W RTU 1 GM/50 ML RTUPB IV ONE (01:44)
[2020-03-20] MEDS ORDERED: ONDANSETRON HCL INJ/PF 4 MG/2 ML SDV IV PRN (04:13)
[2020-03-20] MEDS ORDERED: ONDANSETRON 4 MG TAB.RAPDIS PO PRN (04:13)
[2020-03-20] MEDS ORDERED: ACETAMINOPHEN 325 MG TABLET PO PRN (04:13)
--- NOTE | 2020-03-20 04:30 | PDOC H&P ---
History of Present Illness Admission Date/PCP: 03/20/20 02:54 JOSAFAT LOMBARDO MD History of Present Illness: VIPIN BRANCH is a 80 year old female with past medical history significant for HTN, HLD, T2DM on insulin, TIAs, bilateral ureteral stents, pancreatic cancer on immunotherapy followed by Dr. Charbel perry who presents to the ED with 2- day history of right eye blurred vision/slurred speech/ataxia/loss of bladder control. Medicine service called for stroke work-up. Patient denies any history of previous strokes but notes that she thinks she may have had multiple TIAs in the past. CT head did not show any acute findings. Blood pressure is 158/67 on admission. Patient states she has pancreatic cancer but does not have any significant metastases. Her right eye conjunctiva is clearly inflamed and injected consistent with viral conjunctivitis. Left eye appears normal. MRI brain, echocardiogram, carotid PVL ordered. Patient mated observation. Telemetry. Past Medical History Cardiac Medical History: Reports: Hyperlipidema, Hypertension, Heart Murmur Denies: Myocardial Infarction Pulmonary Medical History: Reports: Asthma, Bronchitis - 2011, Sleep Apnea Denies: Tuberculosis Neurological Medical History: Denies: Seizures Endocrine Medical History: Reports: Diabetes Mellitus Type 2 Malignancy Medical History: Reports: Pancreatic Cancer GI Medical History: Reports: Gastroesophageal Reflux Disease Denies: Hepatitis, Hiatal Hernia Musculoskeltal Medical History: Reports: Arthritis - hands, neck, knees Psychiatric Medical History: Reports: Depression Hematology: Denies: Anemia, Sickle Cell Disease Past Surgical History Past Surgical History: Reports: Appendectomy, Cholecystectomy, Hysterectomy, Tonsillectomy Denies: Amputation, Mastectomy, Pacemaker Social History Information Source: Patient, Emergency Med Personnel Lives with: Family Smoking Status: Former Smoker Electronic Cigarette use?: No Frequency of Alcohol Use: None Hx Recreational Drug Use: No Hx Prescription Drug Abuse: No - Advance Directive Resuscitation Status: Do Not Resuscitate Surrogate healthcare decision maker:: Admitting diagnosis: Strokelike symptoms All aspects of code status discussed with patient/POA including cardioversion, chest compressions, and intubation and the patient/POA indicated they wish to be DNR/DNI MPOA is designated as: DaughterXimena Time spent: Greater than 16 minutes Family History Family History: Reviewed & Not Pertinent, CVA Parental Family History Reviewed: Yes Children Family History Reviewed: Yes Sibling(s) Family History Reviewed.: Yes Medication/Allergy Home Medications: Fluoxetine HCl [Prozac] 40 mg PO DAILY 01/04/12 Metoprolol Succinate [Toprol Xl 50 mg Tab.sr] 50 mg PO QAM 01/04/12 Nitroglycerin [Nitrostat 0.4 mg (1/150 Gr) Tabs 25/Bottle] 0.4 mg SL PRN PRN 01/04/12 Acetaminophen [Tylenol 325 mg Tablet] 650 mg PO Q4HP PRN 01/08/12 Gabapentin [Neurontin 300 mg Capsule] 300 mg PO QHS 02/27/19 Irbesartan/Hydrochlorothiazide [Irbesartan-Hctz 300-12.5 mg Tb] 1 each PO DAILY 02/27/19 Methocarbamol 1,000 mg PO DAILY 02/27/19 Metoprolol Succinate [Toprol Xl 50 mg Tab.sr] 100 mg PO .EVENING 02/27/19 Rosuvastatin Calcium 20 mg PO QHS 02/27/19 Topiramate [Topamax 25 mg Tablet] 25 mg PO PRN PRN 02/27/19 Zolpidem Tartrate [Ambien 5 mg Tablet] 10 mg PO HSP PRN 02/27/19 Hydrocodone/Acetaminophen [[place] 5-325 mg Tablet] 1 tab PO Q6HP PRN #10 tablet 01/21/20 Omeprazole 20 mg PO DAILY #30 tablet. 03/12/20 Famotidine [Pepcid 20 mg Tablet] 20 mg PO DAILY #12 tablet 03/17/20 Simethicone/Sod Bicarb/Cit AC [E-Z-Gas II Eff Granules] 1 each PO BID PRN #10 gran.ef.pk 03/17/20 Allergies/Adverse Reactions: ibuprofen [From Motrin] Allergy (Mild, Verified 03/16/20 16:42) CRAMPING, NAUSEA allopurinol [Allopurinol] Adverse Reaction (Intermediate, Verified 03/16/20 16:42) COUGH Review of Systems All systems: reviewed and no additional remarkable complaints except as stated - Per HPI otherwise negative Physical Exam Vital Signs: Temp Pulse Resp BP Pulse Ox 97.6 F 21 H 158/67 H 100 03/19/20 22:29 03/20/20 02:01 03/20/20 02:00 03/20/20 02:01 Intake & Output 03/18/20 03/19/20 03/20/20 06:59 06:59 06:59 Intake Total 1050 Balance 1050 Weight 80.9 kg Exam: General appearance: PRESENT: no acute distress, well-developed, well-nourished, elderly white female Head exam: PRESENT: atraumatic, normocephalic Eye exam: PRESENT: conjunctiva pink, sclera with significant inflammation/injection consistent with viral conjunctivitis, no purulent drainage. ABSENT: scleral icterus Mouth exam: PRESENT: moist Respiratory exam: PRESENT: clear to auscultation holly. ABSENT: rales, rhonchi, wheezes Cardiovascular exam: PRESENT: RRR. ABSENT: diastolic murmur, rubs, systolic murmur GI/Abdominal exam: PRESENT: normal bowel sounds, soft. ABSENT: distended, guarding, mass, organolmegaly, rebound, tenderness Neurological exam: PRESENT: alert, awake, oriented to person, oriented to place, oriented to time, oriented to situation; strength 5/5 upper and lower extremities equal bilaterally, cranial nerves II through XII grossly intact; patient unable to walk due to generalized weakness Psychiatric exam: PRESENT: appropriate affect, normal mood Skin exam: PRESENT: dry, intact, warm Results Laboratory Results: 03/19/20 23:14 03/19/20 23:14 03/19/20 03/19/20 03/20/20 23:14 23:14 00:50 WBC 10.7 H RBC 3.65 L Hgb 11.8 L Hct 35.9 L MCV 98 H MCH 32.4 MCHC 32.9 RDW 15.3 H Plt Count 241 Seg Neutrophils % Not Reportable Sodium 138.5 Potassium 3.6 Chloride 102 Carbon Dioxide 11 L Anion Gap 26 H BUN 9 Creatinine 0.63 Est GFR ( Amer) > 60 Glucose 158 H Calcium 9.2 Total Bilirubin 0.6 AST 24 Alkaline Phosphatase 146 H Total Protein 5.1 L Albumin 2.5 L Urine Color YELLOW Urine Appearance CLOUDY Urine pH 6.0 Ur Specific [place] 1.016 Urine Protein 30 H Urine Glucose (UA) NEGATIVE Urine Ketones 80 H Urine Blood SMALL H Urine Nitrite NEGATIVE Ur Leukocyte Esterase SMALL H Urine WBC (Auto) 17 Urine RBC (Auto) 7 03/19/20 03/19/20 23:14 23:14 Creatine Kinase 62 Troponin I < 0.012 Impressions: Chest X-Ray 03/20/20 00:31 IMPRESSION: Clear lungs. Head CT 03/20/20 00:32 IMPRESSION: No acute intracranial findings. Assessment and Plan - Diagnosis (1) Stroke-like symptoms Is this a current diagnosis for this admission?: Yes Plan: -Admitted for CVA rule out -NIHSS on Admit: Not documented by ED -tPA not given due to outside of time window -ASA, Statin -Lipid Panel -Carotid PVL -TTE -CT Head no acute findings -MRI Brain pending -Permissive HTN goal < 220/120 for 48hrs post-sx's onset or until CVA ruled out (2) UTI (urinary tract infection) Qualifiers: Urinary tract infection type: acute cystitis Is this a current diagnosis for this admission?: Yes Plan: UA infected Urine culture Possibly the source of patient's neurologic symptoms Ceftriaxone IV (3) Viral conjunctivitis, right eye Is this a current diagnosis for this admission?: Yes Plan: No purulent discharge, do not suspect bacterial infection (4) Ataxia Is this a current diagnosis for this admission?: Yes Plan: PT/OT/ST (5) T2DM (type 2 diabetes mellitus) Qualifiers: Diabetes mellitus regional intermodal truck driver insulin use: with regional intermodal truck driver use Diabetes mellitus complication status: with hyperglycemia Qualified Code(s): E11.65 - Type 2 diabetes mellitus with hyperglycemia; Z79.4 - senior care (current) use of insulin Is this a current diagnosis for this admission?: Yes Plan: Accu-Chek Sinus consult Home maintenance dose 15 units daily (6) HTN (hypertension) Is this a current diagnosis for this admission?: Yes Plan: Hold meds for permissive hypertension (7) Pancreas cancer Qualifiers: Pancreatic malignancy location: unspecified Qualified Code(s): C25.9 - M alignant neoplasm of pancreas, unspecified Is this a current diagnosis for this admission?: Yes Plan: Followed by Dr. Charbel perry On immunotherapy Patient denies metastases - Time Time Spent with patient: 35 or more minutes Medications reviewed and adjusted accordingly: Yes Anticipated Discharge Disposition: Home with Home Health Anticipated Discharge Timeframe: within 72 hours
[2020-03-20] MEDS: PANTOPRAZOLE SODIUM 20 MG TABLET.DR PO SCH (06:39)
[2020-03-20 07:09] LABS: ABSOLUTE MONOCYTES (AUTO) 0.6 10^3/uL (0.1-1.4); BASOPHILS % (AUTO) 0.3 % (0-2); EOSINOPHILS % (AUTO) 0.1 % (0-6); HEMATOCRIT 34.5 % (36.0-47.0); HEMOGLOBIN 11.3 g/dL (12.0-15.5); LYMPHOCYTES % (AUTO) 10.7 % (13-45); MEAN CORPUSCULAR HEMOGLOBIN 31.8 pg (27.0-33.4); MEAN CORPUSCULAR HGB CONC 32.8 g/dL (32.0-36.0); MEAN CORPUSCULAR VOLUME 97 fl (80-97); MONOCYTES % (AUTO) 6.5 % (3-13); PLATELET COUNT 253 10^3/uL (150-450); RED BLOOD COUNT 3.54 10^6/uL (3.72-5.28); RED CELL DISTRIBUTION WIDTH 15.3 % (11.5-14.0); SEGMENTED NEUTROPHILS % (AUTO) 82.4 % (42-78); TOTAL CELLS COUNTED % (AUTO) 100 %; WHITE BLOOD COUNT 9.7 10^3/uL (4.0-10.5)
[2020-03-20 07:30] LABS: BLOOD UREA NITROGEN 10 mg/dL (7-20); CALCIUM 9.1 mg/dL (8.4-10.2); CHOLESTEROL 137.12 mg/dL (0-200); GLUCOSE 163 mg/dL (75-110); POTASSIUM 3.7 mmol/L (3.6-5.0); TRIGLYCERIDES 142 mg/dL (<150)
[2020-03-20 07:35] LABS: CHLORIDE 105 mmol/L (98-107)
[2020-03-20 07:40] LABS: DIRECT LDL 44 mg/dL (<100)
[2020-03-20 07:42] LABS: ANION GAP 22 (5-19)
[2020-03-20 07:45] LABS: CARBON DIOXIDE 10 mmol/L (22-30)
[2020-03-20] MEDS: INSULIN LISPRO 100 UNIT/ML 3 ML VIAL SUBCUT SCH ×4 (09:23→21:52)
--- NOTE | 2020-03-20 09:48 | EKG REPORT ---
SEVERITY:- OTHERWISE NORMAL ECG - SINUS RHYTHM LEFT AXIS DEVIATION : Confirmed by: Gary Tran 20-Mar-2020 09:48:20
[2020-03-20] MEDS: ENOXAPARIN SODIUM INJ 40 MG/0.4 ML DISP.SYRIN SUBCUT SCH (10:19)
[2020-03-20] MEDS: ASPIRIN 81 MG TABLET, CHEWABLE PO SCH (10:19)
[2020-03-20] MEDS: DOCUSATE SODIUM 100 MG CAPSULE PO SCH (10:19)
[2020-03-20] MEDS: METOPROLOL SUCCINATE 50 MG TAB.SR.24H PO SCH (10:19)
[2020-03-20] MEDS: METHOCARBAMOL 500 MG TABLET PO SCH (10:26)
[2020-03-20] MEDS ORDERED: DILTIAZEM HCL INJ 25 MG/5 ML VIAL IV ONE (11:30)
--- NOTE | 2020-03-20 14:29 | PDOC CONSULTATION ---
Consultation Consult Date: 03/20/20 Attending physician:: RICARDA DEL VALLE Provider Consulted: DOMINIQUE ALVAREZ Consult reason:: Patient well-known to our oncology clinic with stage II pancreatic cancer History of Present Illness Admission Date/PCP: 03/20/20 02:54 JOSAFAT LOMBARDO MD Patient complains of: Weakness, dehydration History of Present Illness: VIPIN BRANCH is a 80 year old female with known history of stage II pancreatic cancer, she was found about 3 months ago to have a pancreatic head mass, hyperbilirubinemia, increasing epigastric pain, and ultimately had EUS and ERCP with stent placement, biopsy indicated adenocarcinoma consistent with pancreatic primary. PET/CT done at that time indicated no evidence of distant disease. Patient did not want to consider surgery so we initiated primary chemotherapy. She received only 1 cycle of chemotherapy then got extremely nauseous and weak, and ultimately did not receive any more treatment. Ultimately after time of treatment she got restaged and had stable findings, this was done just last month. Therefore she decided on continuing on next line Therapy with Keytruda. She received that about 3 weeks ago. Was due for further treatment on Sunday. Over the last 1 week she has had 3 different ER visits including one for constipation another 1 for chest pain that ended up en ng an anxiety attack. She is a very anxious person. On this occasion she apparently was found down for several days but the time that she feels like she was down does not coincide with how long she is actually down. She may have only been down for about 24 hours. Regardless EMS was sent to check on her and actually had to break down the door to get into her house. There she is very lethargic and confused. Here, she has been diagnosed with TIA and has been treated as such. But there is no evidence of true stroke. Past Medical History Cardiac Medical History: Reports: Hyperlipidema, Hypertension, Heart Murmur Denies: Myocardial Infarction Pulmonary Medical History: Reports: Asthma, Bronchitis - 2011, Sleep Apnea Denies: Tuberculosis Neurological Medical History: Denies: Seizures Endocrine Medical History: Reports: Diabetes Mellitus Type 2 Malignancy Medical History: Reports: Pancreatic Cancer GI Medical History: Reports: Gastroesophageal Reflux Disease Denies: Hepatitis, Hiatal Hernia Musculoskeltal Medical History: Reports: Arthritis - hands, neck, knees Psychiatric Medical History: Reports: Depression Hematology: Denies: Anemia, Sickle Cell Disease Past Surgical History Past Surgical History: Reports: Appendectomy, Cholecystectomy, Hysterectomy, Tonsillectomy Denies: Amputation, Mastectomy, Pacemaker Social History Lives with: Alone Smoking Status: Never Smoker Electronic Cigarette use?: No Frequency of Alcohol Use: Rare Hx Recreational Drug Use: No Drugs: None Hx Prescription Drug Abuse: No - Advance Directive Resuscitation Status: Do Not Resuscitate Family History Family History: Reviewed & Not Pertinent Parental Family History Reviewed: Yes Children Family History Reviewed: Yes Sibling(s) Family History Reviewed.: Yes Medication/Allergy Home Medications: Fluoxetine HCl [Prozac] 40 mg PO DAILY 01/04/12 Gabapentin [Neurontin 300 mg Capsule] 300 mg PO QHS 02/27/19 Topiramate [Topamax 25 mg Tablet] 25 mg PO PRN PRN 02/27/19 Zolpidem Tartrate [Ambien 5 mg Tablet] 5 mg PO HSP PRN 02/27/19 Alprazolam [Xanax] 1 mg PO Q8HP PRN 03/20/20 Aripiprazole [Abilify 2 mg Tablet] 2 mg PO DAILY 03/20/20 Insulin Glargine,Hum.rec.anlog [Basaglar Kwikpen U-100] 15 unit SQ QPM 03/20/20 Megestrol Acetate 400 mg PO DAILY 03/20/20 Ondansetron HCl [Zofran 8 mg Tablet] 8 mg PO Q8HP PRN 03/20/20 Potassium Chloride [Klor-Con 10 Meq Tablet ER] 20 meq PO DAILY 03/20/20 Promethazine HCl [Phenergan 25 mg Tablet] 25 mg PO Q6HP PRN 03/20/20 Allergies/Adverse Reactions: ibuprofen [From Motrin] Allergy (Mild, Verified 03/16/20 16:42) CRAMPING, NAUSEA allopurinol [Allopurinol] Adverse Reaction (Intermediate, Verified 03/16/20 16:42) COUGH Review of Systems Constitutional: ABSENT: chills, fever(s), headache(s), weight gain, weight loss Eyes: ABSENT: visual disturbances Ears: ABSENT: hearing changes Cardiovascular: ABSENT: chest pain, dyspnea on exertion, edema, orthropnea, palpitations Respiratory: ABSENT: cough, hemoptysis Gastrointestinal: ABSENT: abdominal pain, constipation, diarrhea, hematemesis, hematochezia, nausea, vomiting Genitourinary: ABSENT: dysuria, hematuria Musculoskeletal: ABSENT: joint swelling Integumentary: ABSENT: rash, wounds Neurological: ABSENT: abnormal gait, abnormal speech, confusion, dizziness, focal weakness, syncope Psychiatric: ABSENT: anxiety, depression, homidical ideation, suicidal ideation Endocrine: ABSENT: cold intolerance, heat intolerance, polydipsia, polyuria Hematologic/Lymphatic: ABSENT: easy bleeding, easy bruising Physical Exam Vital Signs: Temp Pulse Resp BP Pulse Ox 99.0 F 149 H 19 131/89 H 99 03/20/20 11:12 03/20/20 11:12 03/20/20 11:12 03/20/20 11:12 03/20/20 11:12 Intake & Output 03/19/20 03/20/20 03/21/20 06:59 06:59 06:59 Intake Total 1050 260 Balance 1050 260 Weight 80.9 kg General appearance: PRESENT: no acute distress, well-developed, well-nourished Head exam: PRESENT: atraumatic, normocephalic Eye exam: PRESENT: conjunctiva pink, EOMI, PERRLA. ABSENT: scleral icterus Ear exam: PRESENT: normal external ear exam Mouth exam: PRESENT: moist, tongue midline Neck exam: ABSENT: carotid bruit, JVD, lymphadenopathy, thyromegaly Respiratory exam: PRESENT: clear to auscultation holly. ABSENT: rales, rhonchi, wheezes Cardiovascular exam: PRESENT: RRR. ABSENT: diastolic murmur, rubs, systolic murmur Pulses: PRESENT: normal dorsalis pedis pul Vascular exam: PRESENT: normal capillary refill GI/Abdominal exam: PRESENT: normal bowel sounds, soft. ABSENT: distended, guarding, mass, organolmegaly, rebound, tenderness Rectal exam: PRESENT: deferred Extremities exam: PRESENT: full ROM. ABSENT: calf tenderness, clubbing, pedal edema Neurological exam: PRESENT: alert, awake, oriented to person, oriented to place, oriented to time, oriented to situation, CN II-XII grossly intact. ABSENT: motor sensory deficit Psychiatric exam: PRESENT: appropriate affect, normal mood. ABSENT: homicidal ideation, suicidal ideation Skin exam: PRESENT: dry, intact, warm. ABSENT: cyanosis, rash Results Laboratory Results: 03/20/20 06:48 03/20/20 06:48 03/19/20 03/19/20 03/20/20 23:14 23:14 00:50 WBC 10.7 H RBC 3.65 L Hgb 11.8 L Hct 35.9 L MCV 98 H MCH 32.4 MCHC 32.9 RDW 15.3 H Plt Count 241 Seg Neutrophils % Not Reportable Sodium 138.5 Potassium 3.6 Chloride 102 Carbon Dioxide 11 L Anion Gap 26 H BUN 9 Creatinine 0.63 Est GFR ( Amer) > 60 Glucose 158 H Calcium 9.2 Total Bilirubin 0.6 AST 24 Alkaline Phosphatase 146 H Total Protein 5.1 L Albumin 2.5 L Triglycerides Cholesterol LDL Cholesterol Direct VLDL Cholesterol HDL Cholesterol Urine Color YELLOW Urine Appearance CLOUDY Urine pH 6.0 Ur Specific [place] 1.016 Urine Protein 30 H Urine Glucose (UA) NEGATIVE Urine Ketones 80 H Urine Blood SMALL H Urine Nitrite NEGATIVE Ur Leukocyte Esterase SMALL H Urine WBC (Auto) 17 Urine RBC (Auto) 7 03/20/20 03/20/20 06:48 06:48 WBC 9.7 RBC 3.54 L Hgb 11.3 L Hct 34.5 L MCV 97 MCH 31.8 MCHC 32.8 RDW 15.3 H Plt Count 253 Seg Neutrophils % 82.4 H Sodium 137.0 Potassium 3.7 Chloride 105 Carbon Dioxide 10 L* Anion Gap 22 H BUN 10 Creatinine 0.62 Est GFR ( Amer) > 60 Glucose 163 H Calcium 9.1 Total Bilirubin AST Alkaline Phosphatase Total Protein Albumin Triglycerides 142 Cholesterol 137.12 LDL Cholesterol Direct 44 VLDL Cholesterol 28.0 HDL Cholesterol 73 Urine Color Urine Appearance Urine pH Ur Specific [place] Urine Protein Urine Glucose (UA) Urine Ketones Urine Blood Urine Nitrite Ur Leukocyte Esterase Urine WBC (Auto) Urine RBC (Auto) 03/19/20 03/19/20 23:14 23:14 Creatine Kinase 62 Troponin I < 0.012 Impressions: Chest X-Ray 03/20/20 00:31 IMPRESSION: Clear lungs. Head CT 03/20/20 00:32 IMPRESSION: No acute intracranial findings. Assessment & Plan - Diagnosis (1) Pancreas cancer Qualifiers: Pancreatic malignancy location: head of pancreas Qualified Code(s): C25.0 - Malignant neoplasm of head of pancreas Is this a current diagnosis for this admission?: Yes Plan: We will hold treatment until she gets stronger. She may need rehab placement, we would not continue any treatment until patient is stronger and out of rehab. We will follow. Do not believe that Karen would have had anything to do with her current presentation. She did not really have any immune mediated side effects that I can tell. And it is very early to see those side effects at this point as she is only had 1 infusion. We generally see them at the 6 to 12-week roman initially. - Time Time Spent: Greater than 70 Minutes
--- NOTE | 2020-03-20 17:21 | Progress Note ---
Provider Note Provider Note: Patient continues to show no neurological deficits. We have restarted some of her home medications. She was seen today by Dr. Anderson. Vital signs have been stable. She apparently is very claustrophobic and does not want to get the MRI but will see what we can do to try and get it. The rest of her work-up is still pending.
[2020-03-20] MEDS ORDERED: INSULIN GLARGINE,HUM.REC.ANLOG 1,000 UNIT/10 ML VIAL (PYX) SUBCUT PRN (17:40)
[2020-03-20] MEDS: INSULIN GLARGINE,HUM.REC.ANLOG 1,000 UNIT/10 ML VIAL SUBCUT SCH (19:16)
[2020-03-20] MEDS: CEFTRIAXONE 2 GM/D5W RTU 2 GM/50 ML RTUPB IV SCH (21:51)
[2020-03-20] MEDS: ALPRAZOLAM 0.5 MG TABLET PO PRN (21:52)
[2020-03-20] MEDS: ZOLPIDEM TARTRATE 5 MG TABLET PO PRN (21:52)
[2020-03-20] MEDS: GABAPENTIN 300 MG CAPSULE PO SCH (21:52)
[2020-03-20] MEDS: ATORVASTATIN CALCIUM 40 MG TABLET PO SCH (21:52)
[2020-03-20] MEDS ORDERED: INSULIN GLARGINE,HUM.REC.ANLOG 1,000 UNIT/10 ML VIAL SUBCUT SCH (22:00)
[2020-03-21 05:58] LABS: BLOOD UREA NITROGEN 8 mg/dL (7-20); CALCIUM 8.7 mg/dL (8.4-10.2); CHLORIDE 104 mmol/L (98-107); CHOLESTEROL 118.08 mg/dL (0-200); GLUCOSE 194 mg/dL (75-110); PHOSPHORUS 2.2 mg/dL (2.5-4.5); POTASSIUM 3.2 mmol/L (3.6-5.0); TRIGLYCERIDES 123 mg/dL (<150)
[2020-03-21 06:09] LABS: DIRECT LDL 41 mg/dL (<100)
[2020-03-21 06:19] LABS: ANION GAP 10 (5-19)
[2020-03-21 06:20] LABS: CARBON DIOXIDE 19 mmol/L (22-30)
[2020-03-21] MEDS: INSULIN LISPRO 100 UNIT/ML 3 ML VIAL SUBCUT SCH ×4 (07:49→22:22)
[2020-03-21] MEDS: PANTOPRAZOLE SODIUM 20 MG TABLET.DR PO SCH (07:49)
[2020-03-21] MEDS: METOPROLOL SUCCINATE 50 MG TAB.SR.24H PO SCH (07:49)
--- NOTE | 2020-03-21 09:10 | EKG REPORT ---
SEVERITY:- ABNORMAL ECG - SINUS TACHYCARDIA LEFT AXIS DEVIATION NONSPECIFIC T ABNORMALITIES, ANT-LAT LEADS : Confirmed by: Gary Tran 21-Mar-2020 09:10:08
[2020-03-21] MEDS: ARIPIPRAZOLE 2 MG TABLET PO SCH (09:12)
[2020-03-21] MEDS: ASPIRIN 81 MG TABLET, CHEWABLE PO SCH (09:12)
[2020-03-21] MEDS: ENOXAPARIN SODIUM INJ 40 MG/0.4 ML DISP.SYRIN SUBCUT SCH (09:12)
[2020-03-21] MEDS: FLUOXETINE HCL 20 MG CAPSULE PO SCH (09:12)
[2020-03-21] MEDS: DOCUSATE SODIUM 100 MG CAPSULE PO SCH (09:12)
[2020-03-21] MEDS: METHOCARBAMOL 500 MG TABLET PO SCH (09:12)
[2020-03-21] MEDS ORDERED: POTASSIUM CHLORIDE 10 MEQ TABLET.ER PO ONE ×2 (11:27→11:30)
[2020-03-21] MEDS: MEGESTROL ACETATE SUSP 400 MG/10 ML UDCUP PO SCH (11:35)
--- NOTE | 2020-03-21 17:31 | PDOC PROGRESS REPORT ---
Subjective Date:: 03/21/20 Subjective:: No adverse events overnight. No new complaints. Vital signs been stable. She has been sleeping all day so her oral intake has not been very good and therefore her urine output has not been very good. She said she likes being in the hospital. She and her daughter want her to be placed in a rehab center. Reason For Visit: VISUAL LOSS,ATAXIA,SLURRED SPEECH,WEAKNESS Physical Exam Vital Signs: Temp Pulse Resp BP Pulse Ox 98.4 F 86 18 119/53 L 98 03/21/20 10:56 03/21/20 14:00 03/21/20 12:00 03/21/20 12:00 03/21/20 12:00 Intake & Output 03/20/20 03/21/20 03/22/20 06:59 06:59 06:59 Intake Total 1050 870 290 Output Total 500 Balance 1050 370 290 Weight 80.9 kg 79.7 kg General appearance: PRESENT: no acute distress, cooperative, disheveled, obese Eye exam: PRESENT: other - No exudates. ABSENT: conjunctival injection Respiratory exam: PRESENT: clear to auscultation holly, symmetrical, unlabored. ABSENT: accessory muscle use, chest wall tenderness, crackles, prolonged expiratory phas, rhonchi, tachypnea, wheezes Cardiovascular exam: PRESENT: RRR, +S1, +S2 Pulses: PRESENT: normal carotid pulses Vascular exam: PRESENT: normal capillary refill GI/Abdominal exam: PRESENT: normal bowel sounds, soft. ABSENT: distended, guarding, rebound, tenderness Extremities exam: ABSENT: clubbing, pedal edema Musculoskeletal exam: PRESENT: normal inspection. ABSENT: deformity Neurological exam: PRESENT: awake - Drowsy but arousable, oriented to person, oriented to place, oriented to situation. ABSENT: motor sensory deficit Psychiatric exam: PRESENT: flat affect Skin exam: PRESENT: dry, warm Results Laboratory Results: 03/20/20 06:48 03/21/20 04:45 03/21/20 04:45 Sodium 132.7 L Potassium 3.2 L Chloride 104 Carbon Dioxide 19 L Anion Gap 10 BUN 8 Creatinine 0.50 L Est GFR ( Amer) > 60 Glucose 194 H Calcium 8.7 Phosphorus 2.2 L Magnesium 1.8 Triglycerides 123 Cholesterol 118.08 LDL Cholesterol Direct 41 VLDL Cholesterol 25.0 HDL Cholesterol 51 03/19/20 03/19/20 23:14 23:14 Creatine Kinase 62 Troponin I < 0.012 Impressions: Chest X-Ray 03/20/20 00:31 IMPRESSION: Clear lungs. Head CT 03/20/20 00:32 IMPRESSION: No acute intracranial findings. Assessment and Plan - Diagnosis (1) UTI (urinary tract infection) Qualifiers: Urinary tract infection type: acute cystitis Hematuria presence: without hematuria Qualified Code(s): N30.00 - Acute cystitis without hematuria Is this a current diagnosis for this admission?: Yes (2) Chronic prescription benzodiazepine use Is this a current diagnosis for this admission?: Yes (3) HTN (hypertension) Is this a current diagnosis for this admission?: Yes (4) Slurred speech Is this a current diagnosis for this admission?: Yes (5) T2DM (type 2 diabetes mellitus) Qualifiers: Diabetes mellitus intermediate insulin use: with termite exterminator use Diabetes mellitus complication status: with hyperglycemia Qualified Code(s): E11.65 - Type 2 diabetes mellitus with hyperglycemia; Z79.4 - terminal press operator (current) use of insulin Is this a current diagnosis for this admission?: Yes (6) Viral conjunctivitis, right eye Is this a current diagnosis for this admission?: Yes (7) Weakness Is this a current diagnosis for this admission?: Yes (8) Pancreas cancer Qualifiers: Pancreatic malignancy location: head of pancreas Qualified Code(s): C25.0 - Malignant neoplasm of head of pancreas Is this a current diagnosis for this admission?: Yes - Plan Summary Summary: Urinalysis was positive for UTI so we are treating that. She has no neurological deficits. I think her slurred speech was from the fact that she was probably taking Ativan and Xanax at home simultaneously, as her daughter reported to us. We have Covid tested her in anticipation of rehab placement. Case management is involved. We are encouraging more oral intake, especially of fluids. - Time Time Spent with patient: 15-24 minutes Anticipated Discharge Disposition: [facility] Anticipated Discharge Timeframe: within 72 hours
[2020-03-21] MEDS ORDERED: INSULIN GLARGINE,HUM.REC.ANLOG 1,000 UNIT/10 ML VIAL (PYX) SUBCUT ONE (19:09)
[2020-03-21] MEDS: INSULIN GLARGINE,HUM.REC.ANLOG 1,000 UNIT/10 ML VIAL SUBCUT SCH (19:12)
[2020-03-21] MEDS: GABAPENTIN 300 MG CAPSULE PO SCH (22:22)
[2020-03-21] MEDS: CEFTRIAXONE 2 GM/D5W RTU 2 GM/50 ML RTUPB IV SCH (22:22)
[2020-03-21] MEDS: ATORVASTATIN CALCIUM 40 MG TABLET PO SCH (22:22)
[2020-03-21] MEDS: ALPRAZOLAM 0.5 MG TABLET PO PRN (22:28)
[2020-03-21] MEDS: ZOLPIDEM TARTRATE 5 MG TABLET PO PRN (22:28)
[2020-03-22 06:53] LABS: BLOOD UREA NITROGEN 7 mg/dL (7-20); CALCIUM 8.8 mg/dL (8.4-10.2); GLUCOSE 131 mg/dL (75-110); POTASSIUM 3.4 mmol/L (3.6-5.0)
[2020-03-22] MEDS: PANTOPRAZOLE SODIUM 20 MG TABLET.DR PO SCH (06:56)
[2020-03-22 07:00] LABS: CARBON DIOXIDE 28 mmol/L (22-30); CHLORIDE 103 mmol/L (98-107)
[2020-03-22 07:08] LABS: ABSOLUTE EOSINOPHILS # (AUTO) 0.2 10^3/uL (0.0-0.6); ABSOLUTE LYMPHOCYTES (AUTO) 1.2 10^3/uL (0.5-4.7); ABSOLUTE MONOCYTES (AUTO) 0.4 10^3/uL (0.1-1.4); ABSOLUTE NEUT (AUTO) 4.1 10^3/uL (1.7-8.2); BASOPHILS % (AUTO) 0.5 % (0-2); EOSINOPHILS % (AUTO) 3.2 % (0-6); HEMATOCRIT 32.5 % (36.0-47.0); HEMOGLOBIN 11.1 g/dL (12.0-15.5); LYMPHOCYTES % (AUTO) 19.5 % (13-45); MEAN CORPUSCULAR HEMOGLOBIN 32.4 pg (27.0-33.4); MEAN CORPUSCULAR HGB CONC 34.1 g/dL (32.0-36.0); MEAN CORPUSCULAR VOLUME 95 fl (80-97); MONOCYTES % (AUTO) 6.9 % (3-13); PLATELET COUNT 187 10^3/uL (150-450); RED BLOOD COUNT 3.41 10^6/uL (3.72-5.28); SEGMENTED NEUTROPHILS % (AUTO) 69.9 % (42-78); TOTAL CELLS COUNTED % (AUTO) 100 %; WHITE BLOOD COUNT 5.9 10^3/uL (4.0-10.5)
[2020-03-22 07:36] LABS: ANION GAP 4 (5-19)
[2020-03-22] MEDS: INSULIN LISPRO 100 UNIT/ML 3 ML VIAL SUBCUT SCH ×4 (08:12→21:36)
--- NOTE | 2020-03-22 08:14 | PDOC PROGRESS REPORT ---
Subjective Date:: 03/22/20 Subjective:: No acute events overnight. Not eating well but notes that she does not have her dentures. Did work w/ PT. Being planned for rehab Reason For Visit: VISUAL LOSS,ATAXIA,SLURRED SPEECH,WEAKNESS Physical Exam Vital Signs: Temp Pulse Resp BP Pulse Ox 97.7 F 76 16 112/52 L 98 03/22/20 07:27 03/22/20 07:00 03/22/20 04:00 03/22/20 04:00 03/22/20 04:00 Intake & Output 03/21/20 03/22/20 03/23/20 06:59 06:59 06:59 Intake Total 870 1344 Output Total 500 650 Balance 370 694 Weight 79.7 kg 80.6 kg General appearance: PRESENT: no acute distress, well-developed, well-nourished Head exam: PRESENT: atraumatic, normocephalic Eye exam: PRESENT: conjunctiva pink, EOMI, PERRLA. ABSENT: scleral icterus Ear exam: PRESENT: normal external ear exam Mouth exam: PRESENT: moist, tongue midline Neck exam: ABSENT: carotid bruit, JVD, lymphadenopathy, thyromegaly Respiratory exam: PRESENT: clear to auscultation holly. ABSENT: rales, rhonchi, wheezes Cardiovascular exam: PRESENT: RRR. ABSENT: diastolic murmur, rubs, systolic murmur Pulses: PRESENT: normal dorsalis pedis pul Vascular exam: PRESENT: normal capillary refill GI/Abdominal exam: PRESENT: normal bowel sounds, soft. ABSENT: distended, guarding, mass, organolmegaly, rebound, tenderness Rectal exam: PRESENT: deferred Extremities exam: PRESENT: full ROM. ABSENT: calf tenderness, clubbing, pedal edema Neurological exam: PRESENT: alert, awake, oriented to person, oriented to place, oriented to time, oriented to situation, CN II-XII grossly intact. ABSENT: motor sensory deficit Psychiatric exam: PRESENT: appropriate affect, normal mood. ABSENT: homicidal ideation, suicidal ideation Skin exam: PRESENT: dry, intact, warm. ABSENT: cyanosis, rash Results Laboratory Results: 03/22/20 05:13 03/22/20 05:13 Sodium 134.4 L Potassium 3.4 L Chloride 103 Carbon Dioxide 28 Anion Gap 4 L BUN 7 Creatinine 0.65 Est GFR ( Amer) > 60 Glucose 131 H Calcium 8.8 03/19/20 03/19/20 23:14 23:14 Creatine Kinase 62 Troponin I < 0.012 Impressions: Chest X-Ray 03/20/20 00:31 IMPRESSION: Clear lungs. Head CT 03/20/20 00:32 IMPRESSION: No acute intracranial findings. Assessment & Plan - Diagnosis (1) Pancreas cancer Qualifiers: Pancreatic malignancy location: head of pancreas Qualified Code(s): C25.0 - Malignant neoplasm of head of pancreas Is this a current diagnosis for this admission?: Yes Plan: As noted previously, agree w/ rehab, will not continue treatment for panc ca while in rehab until d/c home. will follow - Time Time Spent with patient: 15-24 minutes
[2020-03-22] MEDS: DOCUSATE SODIUM 100 MG CAPSULE PO SCH (09:43)
[2020-03-22] MEDS: ARIPIPRAZOLE 2 MG TABLET PO SCH (09:43)
[2020-03-22] MEDS: ASPIRIN 81 MG TABLET, CHEWABLE PO SCH (09:43)
[2020-03-22] MEDS: METOPROLOL SUCCINATE 50 MG TAB.SR.24H PO SCH (09:43)
[2020-03-22] MEDS: FLUOXETINE HCL 20 MG CAPSULE PO SCH (09:43)
[2020-03-22] MEDS: ENOXAPARIN SODIUM INJ 40 MG/0.4 ML DISP.SYRIN SUBCUT SCH (09:44)
[2020-03-22] MEDS: MEGESTROL ACETATE SUSP 400 MG/10 ML UDCUP PO SCH (09:44)
[2020-03-22] MEDS: METHOCARBAMOL 500 MG TABLET PO SCH (09:51)
[2020-03-22] MEDS ORDERED: SENNOSIDES/DOCUSATE 8.6-50 MG 1 EACH TABLET PO PRN (10:11)
[2020-03-22] MEDS: POLYETHYLENE GLYCOL 3350 POWDER 17 GM/1 PACKET PO SCH (11:35)
--- NOTE | 2020-03-22 14:04 | RADIOLOGY REPORT (SQ) ---
EXAM DESCRIPTION: CAROTID DOPPLER IMAGES COMPLETED DATE/TIME: 03/22/2020 1:54 pm REASON FOR STUDY: Suspected CVA I10 ESSENTIAL (PRIMARY) HYPERTENSION E11.65 TYPE 2 DIABETES MELLIT US WITH HYPERGLYCEMIA COMPARISON: None. TECHNIQUE: Grayscale ultrasound, Doppler velocity and spectra, and color Doppler images acquired of the extra-cranial carotid and vertebral arteries. Images stored on PACS. LIMITATIONS: None. FINDINGS: RIGHT CAROTID CCA Velocities: Within normal limits. ICA Velocities Peak systolic 58 cm/s. End diastolic 18 cm/s. Proximal ICA/CCA peak systolic ratio 1.6. Small amount soft plaque. LEFT CAROTID CCA Velocities: Within normal limits. ICA Velocities Peak systolic 60 cm/s. End diastolic 17 cm/s. Proximal ICA/CCA peak systolic ratio 1.5. Small amount of soft plaque. VERTEBRAL ARTERIES: Antegrade flow. Normal waveforms. SUBCLAVIAN ARTERIES: No finding. OTHER: No other significant finding. IMPRESSION: NO HEMODYNAMICALLY SIGNIFICANT STENOSIS. COMMENT: Quality ID #[id number]: Velocity criteria are extrapolated from the diameter data as defined by t he Society of Radiologists in Ultrasound Consensus Conference. Radiology 2003: 229; 340-346. TECHNICAL DOCUMENTATION: JOB ID: [id number] 2010 [employer]- All Rights Reserved Reading location - IP/workstation name: [email or web address]
[2020-03-22] MEDS: INSULIN GLARGINE,HUM.REC.ANLOG 1,000 UNIT/10 ML VIAL SUBCUT SCH (18:21)
--- NOTE | 2020-03-22 18:55 | PDOC DISCHARGE SUMMARY ---
Impression - Admit/DC Date/PCP Admission Date/Primary Care Provider: 03/20/20 02:54 JOSAFAT LOMBARDO MD Discharge Date: 03/23/20 - Discharge Diagnosis (1) UTI (urinary tract infection) Is this a current diagnosis for this admission?: Yes (2) Chronic prescription benzodiazepine use Is this a current diagnosis for this admission?: Yes (3) HTN (hypertension) Is this a current diagnosis for this admission?: Yes (4) Slurred speech Is this a current diagnosis for this admission?: Yes (5) T2DM (type 2 diabetes mellitus) Is this a current diagnosis for this admission?: Yes (6) Viral conjunctivitis, right eye Is this a current diagnosis for this admission?: Yes (7) Weakness Is this a current diagnosis for this admission?: Yes (8) Pancreas cancer Is this a current diagnosis for this admission?: Yes - Assessment Summary: Urinalysis was positive for UTI so we are treating that. She has no neurological deficits. I think her slurred speech was from the fact that she was probably taking Ativan and Xanax at home simultaneously, as her daughter reported to us. We have Covid tested her in anticipation of rehab placement. Case management is involved. We are encouraging more oral intake, especially of fluids. - Additional Information Resuscitation Status: Do Not Resuscitate Discharge Diet: Cardiac, Diabetic Discharge Activity: Supervised Activity Referrals: JOSAFAT LOMBARDO MD [Primary Care Provider] - Follow up as needed Prescriptions: Alprazolam [Xanax 0.5 mg Tablet] 1 mg PO Q8HP PRN #10 tablet PRN Reason: Home Medications: Fluoxetine HCl [Prozac] 40 mg PO DAILY 01/04/12 Gabapentin [Neurontin 300 mg Capsule] 300 mg PO QHS 02/27/19 Aripiprazole [Abilify 2 mg Tablet] 2 mg PO DAILY 03/20/20 Insulin Glargine,Hum.rec.anlog [Basaglar Kwikpen U-100] 15 unit SQ QPM 03/20/20 Megestrol Acetate 400 mg PO DAILY 03/20/20 Alprazolam [Xanax 0.5 mg Tablet] 1 mg PO Q8HP PRN #10 tablet 03/22/20 Aspirin [Aspirin 81 mg Chewable Tablet] 81 mg PO DAILY tab.chew 03/22/20 Atorvastatin Calcium [Lipitor 40 mg Tablet] 40 mg PO QHS tablet 03/22/20 Docusate Sodium [Colace 100 mg Capsule] 100 mg PO DAILY capsule 03/22/20 Insulin Lispro [Humalog Insulin (Lispro) 100 unit/mL] 0 - 12 unit SUBCUT ACHS unit 03/22/20 Metoprolol Succinate [Toprol Xl 50 mg Tab.sr] 50 mg PO QAM tab.sr.24h 03/22/20 Ondansetron [Zofran Odt 4 mg Tablet] 4 mg PO Q4HP PRN tab.rapdis 03/22/20 Pantoprazole Sodium [Protonix [address] Tablet] 20 mg PO 0600 tablet.dr 03/22/20 Polyethylene Glycol 3350 [Miralax Powder 17 gm/Packet] 17 gm PO DAILY powd.pack 03/22/20 History of Present Illiness History of Present Illness: VIPIN BRANCH is a 80 year old female with past medical history significant for HTN, HLD, T2DM on insulin, TIAs, bilateral ureteral stents, pancreatic cancer on immunotherapy followed by Dr. Charbel perry who presents to the ED with 2- day history of right eye blurred vision/slurred speech/ataxia/loss of bladder control. Medicine service called for stroke work-up. Patient denies any history of previous strokes but notes that she thinks she may have had multiple TIAs in the past. CT head did not show any acute findings. Blood pressure is 158/67 on admission. Patient states she has pancreatic cancer but does not have any significant metastases. Her right eye conjunctiva is clearly inflamed and injected consistent with viral conjunctivitis. Left eye appears normal. MRI brain, echocardiogram, carotid PVL ordered. Patient mated observation. Tel emetry. Hospital Course Hospital Course: She had no neurological deficits. Head CT was negative. We held some of her sedating medications because it was felt that she was taking too much benzodiazepine at home, and possibly mixing old prescriptions with new ones according to her daughter. She was seen in consultation by Dr. Anderson who recommended holding off on her pancreatic cancer treatment for the time being. She ruled out for Covid and a bed was obtained in a [facility] facility because of her weakness and the fact that she is by herself at home. A bed was obtained and she was discharged in stable condition. Physical Exam Vital Signs: Temp Pulse Resp BP Pulse Ox 98.1 F 78 17 120/49 L 96 11/16/20 16:09 03/22/20 16:09 03/22/20 16:09 03/22/20 16:09 03/22/20 16:09 Intake & Output 03/21/20 03/22/20 03/23/20 06:59 06:59 06:59 Intake Total 870 1344 1342 Output Total 500 650 149 Balance 370 694 867 Weight 79.7 kg 80.6 kg General appearance: PRESENT: no acute distress, cooperative, disheveled, obese Eye exam: PRESENT: other - No exudates. ABSENT: conjunctival injection Respiratory exam: PRESENT: clear to auscultation holly, symmetrical, unlabored. ABSENT: accessory muscle use, chest wall tenderness, crackles, prolonged expiratory phas, rhonchi, tachypnea, wheezes Cardiovascular exam: PRESENT: RRR, +S1, +S2 Pulses: PRESENT: normal carotid pulses Vascular exam: PRESENT: normal capillary refill GI/Abdominal exam: PRESENT: normal bowel sounds, soft. ABSENT: distended, guarding, rebound, tenderness Extremities exam: ABSENT: clubbing, pedal edema Musculoskeletal exam: PRESENT: normal inspection. ABSENT: deformity Neurological exam: PRESENT: awake - Drowsy but arousable, oriented to person, oriented to place, oriented to situation. ABSENT: motor sensory deficit Psychiatric exam: PRESENT: flat affect Skin exam: PRESENT: dry, warm Results Laboratory Results: WBC 5.9 10^3/uL (4.0-10.5) 03/22/20 05:13 RBC 3.41 10^6/uL (3.72-5.28) L 03/22/20 05:13 Hgb 11.1 g/dL (12.0-15.5) L 03/22/20 05:13 Hct 32.5 % (36.0-47.0) L 03/22/20 05:13 MCV 95 fl (80-97) 03/22/20 05:13 MCH 32.4 pg (27.0-33.4) 03/22/20 05:13 MCHC 34.1 g/dL (32.0-36.0) 03/22/20 05:13 RDW 15.0 % (11.5-14.0) H 03/22/20 05:13 Plt Count 187 10^3/uL (150-450) 03/22/20 05:13 Lymph % (Auto) 19.5 % (13-45) 03/22/20 05:13 Emmons % (Auto) 6.9 % (3-13) 03/22/20 05:13 Eos % (Auto) 3.2 % (0-6) 03/22/20 05:13 Baso % (Auto) 0.5 % (0-2) 03/22/20 05:13 Absolute Neuts (auto) 4.1 10^3/uL (1.7-8.2) 03/22/20 05:13 Absolute Lymphs (auto) 1.2 10^3/uL (0.5-4.7) 03/22/20 05:13 Absolute Monos (auto) 0.4 10^3/uL (0.1-1.4) 03/22/20 05:13 Absolute Eos (auto) 0.2 10^3/uL (0.0-0.6) 03/22/20 05:13 Absolute Basos (auto) 0.0 10^3/uL (0.0-0.2) 03/22/20 05:13 Total Counted 100 03/19/20 23:14 Seg Neutrophils % 69.9 % (42-78) 03/22/20 05:13 Seg Neuts % (Manual) 92 % (42-78) H 03/19/20 23:14 Lymphocytes % (Manual) 5 % (13-45) L 03/19/20 23:14 Monocytes % (Manual) 3 % (3-13) 03/19/20 23:14 Eosinophils % (Manual) 0 % (0-6) 03/19/20 23:14 Basophils % (Manual) 0 % (0-2) 03/19/20 23:14 Abs Neuts (Manual) 9.8 10^3/uL (1.7-8.2) H 03/19/20 23:14 Abs Lymphs (Manual) 0.5 10^3/uL (0.5-4.7) 03/19/20 23:14 Abs Monocytes (Manual) 0.3 10^3/uL (0.1-1.4) 03/19/20 23:14 Absolute Eos (Manual) 0.0 10^3/uL (0.0-0.6) 03/19/20 23:14 Abs Basophils (Manual) 0.0 10^3/uL (0.0-0.2) 03/19/20 23:14 Toxic Granulation SLIGHT 03/19/20 23:14 Toxic Vacuolation PRESENT 03/19/20 23:14 Platelet Comment ADEQUATE 03/19/20 23:14 Anisocytosis SLIGHT 03/19/20 23:14 PT 15.8 SEC (11.4-15.4) H 03/19/20 23:14 INR 1.24 03/19/20 23:14 APTT 32.0 SEC (23.5-35.8) 03/19/20 23:14 Sodium 134.4 mmol/L (137-145) L 03/22/20 05:13 Potassium 3.4 mmol/L (3.6-5.0) L 03/22/20 05:13 Chloride 103 mmol/L (98-107) 03/22/20 05:13 Carbon Dioxide 28 mmol/L (22-30) 03/22/20 05:13 Anion Gap 4 (5-19) L 03/22/20 05:13 BUN 7 mg/dL (7-20) 03/22/20 05:13 Creatinine 0.65 mg/dL (0.52-1.25) 03/22/20 05:13 Est GFR ( Amer) > 60 (>60) 03/22/20 05:13 Est GFR (MDRD) Non-Af > 60 (>60) 03/22/20 05:13 Glucose 131 mg/dL (75-110) H 03/22/20 05:13 POC Glucose 289 mg/dL (70-110) H 03/22/20 16:10 Hemoglobin A1c % 6.6 % (4.7-6.0) H 03/21/20 04:45 Calcium 8.8 mg/dL (8.4-10.2) 03/22/20 05:13 Phosphorus 2.2 mg/dL (2.5-4.5) L 03/21/20 04:45 Magnesium 1.8 mg/dL (1.6-2.3) 03/21/20 04:45 Total Bilirubin 0.6 mg/dL (0.2-1.3) 03/19/20 23:14 Direct Bilirubin 0.4 mg/dL (0.0-0.4) 03/19/20 23:14 Neonat Total Bilirubin Not Reportable 03/19/20 23:14 Neonat Direct Bilirubin Not Reportable 03/19/20 23:14 Neonat Indirect Bili Not Reportable 03/19/20 23:14 AST 24 U/L (14-36) 03/19/20 23:14 ALT 16 U/L (<35) 03/19/20 23:14 Alkaline Phosphatase 146 U/L (38-126) H 03/19/20 23:14 Creatine Kinase 62 U/L (30-135) 03/19/20 23:14 Troponin I < 0.012 ng/mL 03/19/20 23:14 Total Protein 5.1 g/dL (6.3-8.2) L 03/19/20 23:14 Albumin 2.5 g/dL (3.5-5.0) L 03/19/20 23:14 Triglycerides 123 mg/dL (<150) 03/21/20 04:45 Cholesterol 118.08 mg/dL (0-200) 03/21/20 04:45 LDL Cholesterol Direct 41 mg/dL (<100) 03/21/20 04:45 VLDL Cholesterol 25.0 mg/dL (10-31) 03/21/20 04:45 HDL Cholesterol 51 mg/dL (>40) 03/21/20 04:45 Urine Color YELLOW 03/20/20 00:50 Urine Appearance CLOUDY 03/20/20 00:50 Urine pH 6.0 (5.0-9.0) 03/20/20 00:50 Ur Specific [place] 1.016 03/20/20 00:50 Urine Protein 30 mg/dL (NEGATIVE) H 03/20/20 00:50 Urine Glucose (UA) NEGATIVE mg/dL (NEGATIVE) 03/20/20 00:50 Urine Ketones 80 mg/dL (NEGATIVE) H 03/20/20 00:50 Urine Blood SMALL (NEGATIVE) H 03/20/20 00:50 Urine Nitrite NEGATIVE (NEGATIVE) 03/20/20 00:50 Urine Bilirubin NEGATIVE (NEGATIVE) 03/20/20 00:50 Urine Urobilinogen NEGATIVE mg/dL (<2.0) 03/20/20 00:50 Ur Leukocyte Esterase SMALL (NEGATIVE) H 03/20/20 00:50 Urine WBC (Auto) 17 /HPF 03/20/20 00:50 Urine RBC (Auto) 7 /HPF 03/20/20 00:50 U Hyaline Cast (Auto) 17 /LPF 03/20/20 00:50 Urine Bacteria (Auto) TRACE /HPF 03/20/20 00:50 Squamous Epi Cells Auto 2 /HPF 03/20/20 00:50 Calcium Oxalate Cr Auto RARE /HPF 03/20/20 00:50 Urine Mucus (Auto) FEW /LPF 03/20/20 00:50 Urine Ascorbic Acid NEGATIVE (NEGATIVE) 03/20/20 00:50 COVID-19 Source See comment 03/21/20 16:35 03/19/20 23:14 Troponin I < 0.012 Impressions: Chest X-Ray 03/20/20 00:31 IMPRESSION: Clear lungs. Head CT 03/20/20 00:32 IMPRESSION: No acute intracranial findings. Carotid Doppler Study 03/22/20 04:06 IMPRESSION: NO HEMODYNAMICALLY SIGNIFICANT STENOSIS. Plan Time Spent: Greater than 30 Minutes Stroke Is this a Stroke Patient?: No Acute Heart Failure Is this a Heart Failure Patient?: No
--- NOTE | 2020-03-22 19:39 | XCELERA REPORT ---
[address] [address] Transthoracic Echocardiogram Report Name: VIPIN BRANCH Age: 80 yrs Gender: Female : 1940 Patient Status: Inpatient Patient Location: [address] [place] [address] Study Date: 03/22/2020 10:34 AM Weight: 178 lb Procedure: A two-dimensional transthoracic echocardiogram with color flow and Doppler was performed. Study Quality: Poor. Reason For Study: CVA History: CVA. Ordering Physician: SMITA STOCK Performed By: Sandra Langley Interpretation Summary There is no obvious cardiac source of embolus noted on this transthoracic echocardiogram. Follow-up with a LUX is suggested if cardiac source is still suspected. study performed with student The left ventricle is normal in size. There is normal left ventricular wall thickness. LV EF is 60% to 65% Left ventricular systolic function is normal. Doppler measurements suggest impaired left ventricular relaxation, which is associated with grade I/IV or mild diastolic dysfunction The left ventricular wall motion is normal. There is no thrombus. Cannot assess ASD,VSD or PFO. The right atrium is normal. The left atrial size is normal. There is no evidence of mitral valve prolapse. There is no vegetation seen on the mitral valve. There is no mitral valve stenosis. There is a trace amount of mitral regurgitation There is no aortic valvular vegetation. There is no aortic valve stenosis There is no LVOT obstruction. No aortic regurgitation is present. There is no tricuspid stenosis. There is a trace amount of tricuspid regurgitation Right ventricular systolic pressure is normal. RVSP is 17 mm of H , with RA mean of 10. There is no pulmonic valvular stenosis. There is no pulmonic valvular regurgitation. The aortic root is not well visualized but is probably normal size. The inferior vena cava was not well visualized There is no pericardial effusion. There is no obvious cardiac source of embolus noted on this transthoracic echocardiogram. Follow-up with a LUX is suggested if cardiac source is still suspected MMode/2D Measurements & Calculations RVDd: 2.2 cm LVIDd: 4.0 cm FS: 29.8 % Ao root diam: 2.8 cm IVSd: 1.0 cm LVIDs: 2.8 cm EDV(Teich): 69.0 ml LVPWd: 0.99 cm ESV(Teich): 29.3 ml Ao root area: 6.3 cm2 EF(Teich): 57.4 % Doppler Measurements & Calculations MV E max tim: MV dec slope: Ao V2 max: LV V1 max P.5 cm/sec 107.7 cm/sec 3.2 mmHg MV A max tim: 315.5 cm/sec2 Ao max PG: LV V1 mean P.3 cm/sec MV dec time: 0.18 sec4.6 mmHg 1.4 mmHg MV E/A: 0.63 LV V1 max: 89.4 cm/sec LV V1 mean: 56.0 cm/sec LV V1 VTI: 16.0 cm PA V2 max: TR max tim: 71.7 cm/sec 134.3 cm/sec PA max P.1 mmHg TR max P.2 mmHg Left Ventricle The left ventricle is normal in size. There is normal left ventricular wall thickness. LV EF is 60% to 65%. Left ventricular systolic function is normal. Doppler measurements suggest impaired left ventricular relaxation, which is associated with grade I/IV or mild diastolic dysfunction. The left ventricular wall motion is normal. There is no thrombus. Cannot assess ASD,VSD or PFO. Right Ventricle The right ventricle is not well visualized secondary to technical limitations. Atria The right atrium is normal. The left atrial size is normal. Mitral Valve There is no evidence of mitral valve prolapse. There is no vegetation seen on the mitral valve. There is no mitral valve stenosis. There is a trace amount of mitral regurgitation. Aortic Valve There is no aortic valvular vegetation. There is no aortic valve stenosis. There is no LVOT obstruction. No aortic regurgitation is present. Tricuspid Valve There is no tricuspid stenosis. There is a trace amount of tricuspid regurgitation. Right ventricular systolic pressure is normal. RVSP is 17 mm of H , with RA mean of 10. Pulmonic Valve There is no pulmonic valvular stenosis. There is no pulmonic valvular regurgitation. Great Vessels The aortic root is not well visualized but is probably normal size. The inferior vena cava was not well visualized. Effusions There is no pericardial effusion. : SMITA STOCK Lakshmi
[2020-03-22] MEDS: GABAPENTIN 300 MG CAPSULE PO SCH (21:36)
[2020-03-22] MEDS: ATORVASTATIN CALCIUM 40 MG TABLET PO SCH (21:37)
[2020-03-22] MEDS: CEFTRIAXONE 2 GM/D5W RTU 2 GM/50 ML RTUPB IV SCH (21:37)
[2020-03-22] MEDS: ZOLPIDEM TARTRATE 5 MG TABLET PO PRN (22:22)
[2020-03-23] MEDS: PANTOPRAZOLE SODIUM 20 MG TABLET.DR PO SCH (05:37)
[2020-03-23 06:57] LABS: ABSOLUTE EOSINOPHILS # (AUTO) 0.2 10^3/uL (0.0-0.6); ABSOLUTE LYMPHOCYTES (AUTO) 1.4 10^3/uL (0.5-4.7); ABSOLUTE MONOCYTES (AUTO) 0.5 10^3/uL (0.1-1.4); ABSOLUTE NEUT (AUTO) 4.4 10^3/uL (1.7-8.2); BASOPHILS % (AUTO) 0.4 % (0-2); EOSINOPHILS % (AUTO) 2.8 % (0-6); HEMATOCRIT 33.7 % (36.0-47.0); HEMOGLOBIN 11.3 g/dL (12.0-15.5); MEAN CORPUSCULAR HEMOGLOBIN 31.8 pg (27.0-33.4); MEAN CORPUSCULAR HGB CONC 33.6 g/dL (32.0-36.0); MEAN CORPUSCULAR VOLUME 95 fl (80-97); PLATELET COUNT 194 10^3/uL (150-450); RED BLOOD COUNT 3.56 10^6/uL (3.72-5.28); RED CELL DISTRIBUTION WIDTH 15.3 % (11.5-14.0); SEGMENTED NEUTROPHILS % (AUTO) 67.8 % (42-78); TOTAL CELLS COUNTED % (AUTO) 100 %; WHITE BLOOD COUNT 6.5 10^3/uL (4.0-10.5)
[2020-03-23 07:30] LABS: ANION GAP 5 (5-19); BLOOD UREA NITROGEN 10 mg/dL (7-20); CALCIUM 8.8 mg/dL (8.4-10.2); CARBON DIOXIDE 27 mmol/L (22-30); CHLORIDE 104 mmol/L (98-107); GLUCOSE 105 mg/dL (75-110); POTASSIUM 3.7 mmol/L (3.6-5.0)
--- NOTE | 2020-03-23 08:22 | PDOC PROGRESS REPORT ---
Subjective Date:: 03/23/20 Subjective:: D/c possible today to rehab at [place], [facility] set up f/u in 3 wk w/ us. Holding all rx until out of rehab Reason For Visit: VISUAL LOSS,ATAXIA,SLURRED SPEECH,WEAKNESS Physical Exam Vital Signs: Temp Pulse Resp BP Pulse Ox 97.8 F 75 18 133/70 H 98 03/23/20 08:07 03/23/20 08:07 03/23/20 08:07 03/23/20 08:07 03/23/20 08:07 Intake & Output 03/22/20 03/23/20 03/24/20 06:59 06:59 06:59 Intake Total 1344 2035 Output Total 650 1475 Balance 694 560 Weight 80.6 kg 83.2 kg General appearance: PRESENT: no acute distress, well-developed, well-nourished Head exam: PRESENT: atraumatic, normocephalic Eye exam: PRESENT: conjunctiva pink, EOMI, PERRLA. ABSENT: scleral icterus Ear exam: PRESENT: normal external ear exam Mouth exam: PRESENT: moist, tongue midline Neck exam: ABSENT: carotid bruit, JVD, lymphadenopathy, thyromegaly Respiratory exam: PRESENT: clear to auscultation holly. ABSENT: rales, rhonchi, wheezes Cardiovascular exam: PRESENT: RRR. ABSENT: diastolic murmur, rubs, systolic murmur Pulses: PRESENT: normal dorsalis pedis pul Vascular exam: PRESENT: normal capillary refill GI/Abdominal exam: PRESENT: normal bowel sounds, soft. ABSENT: distended, guard ing, mass, organolmegaly, rebound, tenderness Rectal exam: PRESENT: deferred Extremities exam: PRESENT: full ROM. ABSENT: calf tenderness, clubbing, pedal edema Neurological exam: PRESENT: alert, awake, oriented to person, oriented to place, oriented to time, oriented to situation, CN II-XII grossly intact. ABSENT: motor sensory deficit Psychiatric exam: PRESENT: appropriate affect, normal mood. ABSENT: homicidal ideation, suicidal ideation Skin exam: PRESENT: dry, intact, warm. ABSENT: cyanosis, rash Results Laboratory Results: 03/23/20 05:33 03/23/20 05:35 03/23/20 03/23/20 05:33 05:35 WBC 6.5 RBC 3.56 L Hgb 11.3 L Hct 33.7 L MCV 95 MCH 31.8 MCHC 33.6 RDW 15.3 H Plt Count 194 Seg Neutrophils % 67.8 Sodium 135.5 L Potassium 3.7 Chloride 104 Carbon Dioxide 27 Anion Gap 5 BUN 10 Creatinine 0.55 Est GFR ( Amer) > 60 Glucose 105 Calcium 8.8 03/20/20 00:50 Clean Catch Midstream Urine Culture - Final Citrobacter Freundii Urogenital Jaqui 03/19/20 03/19/20 23:14 23:14 Creatine Kinase 62 Troponin I < 0.012 Impressions: Chest X-Ray 03/20/20 00:31 IMPRESSION: Clear lungs. Head CT 03/20/20 00:32 IMPRESSION: No acute intracranial findings. Carotid Doppler Study 03/22/20 04:06 IMPRESSION: NO HEMODYNAMICALLY SIGNIFICANT STENOSIS. Assessment & Plan - Diagnosis (1) Pancreas cancer Qualifiers: Pancreatic malignancy location: head of pancreas Qualified Code(s): C25.0 - Malignant neoplasm of head of pancreas Is this a current diagnosis for this admission?: Yes Plan: Therapy on hold, will f/u as outpt - Time Time Spent with patient: 15-24 minutes
[2020-03-23] MEDS: INSULIN LISPRO 100 UNIT/ML 3 ML VIAL SUBCUT SCH (09:03)
[2020-03-23] MEDS: POLYETHYLENE GLYCOL 3350 POWDER 17 GM/1 PACKET PO SCH (09:08)
[2020-03-23] MEDS: METOPROLOL SUCCINATE 50 MG TAB.SR.24H PO SCH (09:08)
[2020-03-23] MEDS: DOCUSATE SODIUM 100 MG CAPSULE PO SCH (09:08)
[2020-03-23] MEDS: ENOXAPARIN SODIUM INJ 40 MG/0.4 ML DISP.SYRIN SUBCUT SCH (09:09)
[2020-03-23] MEDS: MEGESTROL ACETATE SUSP 400 MG/10 ML UDCUP PO SCH (09:09)
[2020-03-23] MEDS: ASPIRIN 81 MG TABLET, CHEWABLE PO SCH (09:09)
[2020-03-23] MEDS: FLUOXETINE HCL 20 MG CAPSULE PO SCH (09:09)
[2020-03-23] MEDS: ARIPIPRAZOLE 2 MG TABLET PO SCH (09:09)
[2020-03-23] MEDS: METHOCARBAMOL 500 MG TABLET PO SCH (09:10)
[2020-03-23 13:51] VITALS: BP 118/60
== END 2020-03-23 14:33 | DRG 690 ==
LOC: ER 22:28 → EH 03-20 02:54 → 3W 03-20 08:27 → OBSVTOIN 03-21 14:37
PROVIDERS: ADMIT Internal Medicine; ATTEND Family Medicine
PROC: B24BZZ4 Ultrasonography of Heart with Aorta, Transesophageal (ICD-10-PCS; principal; 2020-03-22)
DX: N30.00 Acute cystitis without hematuria (principal); C25.0 Malignant neoplasm of head of pancreas; E11.65 Type 2 diabetes mellitus with hyperglycemia; B30.9 Viral conjunctivitis, unspecified; Z20.828 Contact with and (suspected) exposure to other viral communicable diseases; Z66 Do not resuscitate; F11.90 Opioid use, unspecified, uncomplicated; I10 Essential (primary) hypertension; R47.81 Slurred speech; R53.1 Weakness; E86.0 Dehydration; F40.240 Claustrophobia; E78.5 Hyperlipidemia, unspecified; K21.9 Gastro-esophageal reflux disease without esophagitis; T42.4X5A Adverse effect of benzodiazepines, initial encounter; E78.00 Pure hypercholesterolemia, unspecified; Z60.2 Problems related to living alone; Z79.4 Long term (current) use of insulin; Z79.899 Other long term (current) drug therapy; Z79.82 Long term (current) use of aspirin; Z88.8 Allergy status to other drugs, medicaments and biological substances; Z87.891 Personal history of nicotine dependence; Z86.73 Personal history of transient ischemic attack (TIA), and cerebral infarction without residual deficits
CPT/HCPCS: 36415; 70450; 71045; 80048; 80053; 80061; 81001; 82550; 82962; 83036; 83735; 84100; 84484; 85025; 85610; 85730; 87086; 87088; 87186; 87635; 93005; 93010; 93306; 93880; 96365; 96375; 99285; C9803; G0378; J0696; J1650; J1815; J3490; J7030

== ENCOUNTER 2020-05-04 11:14 | Emergency (ER) | payer MEDICARE, BC ==
--- NOTE | 2020-05-04 12:44 | ER Document Report ---
ED Medical Screen (RME) - General Chief Complaint: General Weakness Stated Complaint: WEAKNESS Time Seen by Provider: 05/04/20 12:34 Primary Care Provider: JOSAFAT LOMBARDO MD [Primary Care Provider] - Follow up as needed TRAVEL OUTSIDE OF THE [place] IN LAST 30 DAYS: No - HPI Notes: 05/04/20 12:42 80-year-old female who is a insulin-dependent type 2 diabetic with a history of pancreatic cancer presents to the emergency room for increased weakness that has become progressively worse over the last few days. Reports she has not had anything to eat since . reports this morning she fell down, landed on her knees due to being so week. Denies any nausea,vomiting, diarrhea, chest pain, shortness of breath, abdominal pain. A social work consult has been placed. Denies any fevers or chills. I have greeted and performed a rapid initial assessment of this patient. A comprehensive ED assessment and evaluation of the patient, analysis of test results and completion of the medical decision making process will be conducted by additional ED providers. PHYSICAL EXAMINATION: GENERAL: Chronically ill and malnourished and in no acute distress. CV: s1, s2 regular LUNGS: No respiratory distress The patient was evaluated during a global COVID-19 pandemic and that diagnosis was suspected/considered upon their initial presentation. Their evaluation, treatment and testing was consistent with current guidelines for patients who present with complaints or symptoms and may be related to COVID-19. - Related Data Allergies/Adverse Reactions: ibuprofen [From Motrin] Allergy (Mild, Verified 05/04/20 12:26) CRAMPING, NAUSEA allopurinol [Allopurinol] Adverse Reaction (Intermediate, Verified 05/04/20 12:26) COUGH Home Medications: xanax, abilify, fluoxetine, potassium Past Medical History - Past Medical History Cardiac Medical History: Reports: Hx Hypercholesterolemia, Hx Hypertension, Hx Heart Murmur Denies: Hx Heart Attack Pulmonary Medical History: Reports: Hx Asthma, Hx Bronchitis - 2010, Hx Sleep Apnea Denies: Hx Tuberculosis Neurological Medical History: Reports: Hx Cerebrovascular Accident - SILENT STROKE ON MRI 2012. Denies: Hx Seizures Endocrine Medical History: Reports: Hx Diabetes Mellitus Type 2 Malignancy Medical History: Reports: Hx Pancreatic Cancer GI Medical History: Reports: Hx Gastroesophageal Reflux Disease. Denies: Hx Hepatitis, Hx Hiatal Hernia, Hx Ulcer Musculoskeltal Medical History: Reports Hx Arthritis - hands, neck, knees Psychiatric Medical History: Reports: Hx Depression Infectious Medical History: Denies: Hx Hepatitis Past Surgical History: Reports: Hx Abdominal Surgery, Hx Appendectomy, Hx Cholecystectomy, Hx Hysterectomy, Hx Tonsillectomy. Denies: Hx Mastectomy, Hx Open Heart Surgery, Hx Pacemaker - Immunizations Hx Diphtheria, Pertussis, Tetanus Vaccination: No Physical Exam - Vital signs Vitals: Temp Pulse Resp BP Pulse Ox 97.6 F 102 H 16 130/96 H 96 05/04/20 11:25 05/04/20 11:25 05/04/20 11:25 05/04/20 11:25 05/04/20 11:25 Course - Vital Signs Vital signs: Temp Pulse Resp BP Pulse Ox 97.6 F 102 H 16 130/96 H 96 05/04/20 11:25 05/04/20 11:25 05/04/20 11:25 05/04/20 11:25 05/04/20 11:25 Doctor's Discharge - Discharge Referrals: JOSAFAT LOMBARDO MD [Primary Care Provider] - Follow up as needed
[2020-05-04 13:24] LABS: ABSOLUTE LYMPHOCYTES (AUTO) 1.2 10^3/uL (0.5-4.7); ABSOLUTE MONOCYTES (AUTO) 0.5 10^3/uL (0.1-1.4); ABSOLUTE NEUT (AUTO) 6.6 10^3/uL (1.7-8.2); BASOPHILS % (AUTO) 0.2 % (0-2); EOSINOPHILS % (AUTO) 0.3 % (0-6); HEMATOCRIT 37.7 % (36.0-47.0); HEMOGLOBIN 12.7 g/dL (12.0-15.5); LYMPHOCYTES % (AUTO) 14.1 % (13-45); MEAN CORPUSCULAR HEMOGLOBIN 32.2 pg (27.0-33.4); MEAN CORPUSCULAR HGB CONC 33.6 g/dL (32.0-36.0); MEAN CORPUSCULAR VOLUME 96 fl (80-97); MONOCYTES % (AUTO) 6.4 % (3-13); PLATELET COUNT 139 10^3/uL (150-450); RED BLOOD COUNT 3.94 10^6/uL (3.72-5.28); RED CELL DISTRIBUTION WIDTH 15.2 % (11.5-14.0); TOTAL CELLS COUNTED % (AUTO) 100 %; WHITE BLOOD COUNT 8.4 10^3/uL (4.0-10.5)
[2020-05-04 13:46] LABS: ALBUMIN 2.8 g/dL (3.5-5.0); ALKALINE PHOSPHATASE 174 U/L (38-126); ANION GAP 9 (5-19); ASPARTATE AMINO TRANSFERASE 22 U/L (14-36); BILIRUBIN,DIRECT 0.1 mg/dL (0.0-0.4); BILIRUBIN,TOTAL 0.9 mg/dL (0.2-1.3); BLOOD UREA NITROGEN 7 mg/dL (7-20); CALCIUM 8.8 mg/dL (8.4-10.2); CARBON DIOXIDE 24 mmol/L (22-30); CHLORIDE 102 mmol/L (98-107); GLUCOSE 252 mg/dL (75-110); TOTAL PROTEIN 5.9 g/dL (6.3-8.2)
[2020-05-04 13:56] LABS: APPEARANCE,URINE SLIGHTLY-CLOUDY; BILIRUBIN,URINE NEGATIVE (NEGATIVE); CALCIUM OXALATE CRYSTALS,URINE MODERATE /HPF; COLOR,URINE YELLOW; GLUCOSE, URINE 50 mg/dL (NEGATIVE); KETONES,URINE 20 mg/dL (NEGATIVE); LEUKOCYTE ESTERASE,URINE MODERATE (NEGATIVE); NITRITE,URINE NEGATIVE (NEGATIVE); PROTEIN,URINE 30 mg/dL (NEGATIVE); URINE SPECIFIC GRAVITY 1.018
[2020-05-04 13:58] LABS: POTASSIUM 2.7 mmol/L (3.6-5.0)
--- NOTE | 2020-05-04 14:20 | RADIOLOGY REPORT (SQ) ---
EXAM DESCRIPTION: CHEST SINGLE VIEW IMAGES COMPLETED DATE/TIME: 05/04/2020 2:08 pm REASON FOR STUDY: weakness COMPARISON: 03/20/2020 EXAM PARAMETERS: NUMBER OF VIEWS: One view. TECHNIQUE: Single frontal radiographic view of the chest acquired. RADIATION DOSE: NA LIMITATIONS: None. FINDINGS: LUNGS AND PLEURA: No opacities, masses or pneumothorax. No pleural effusion. MEDIASTINUM AND HILAR STRUCTURES: No masses. Contour normal. HEART AND VASCULAR STRUCTURES: Heart normal in size. Normal vasculature. BONES: No acute findings. HARDWARE: Left chest Port-A-Cath appears stable in position. OTHER: No other significant finding. IMPRESSION: No evidence of acute cardiopulmonary abnormality. TECHNICAL DOCUMENTATION: JOB ID: [id number] 2010 [employer]- All Rights Reserved Reading location - IP/workstation name: [email or web address]
[2020-05-04] MEDS ORDERED: POTASSI CL 40 MEQ/NS 1L 1,000 ML IV ONE (16:12)
--- NOTE | 2020-05-04 16:12 | EKG REPORT ---
SEVERITY:- ABNORMAL ECG - SINUS TACHYCARDIA MULTIPLE VENTRICULAR PREMATURE COMPLEXES PROBABLE INFERIOR INFARCT, AGE INDETERMINATE ANTEROLATERAL INFARCT, AGE INDETERMINATE : Confirmed by: David Antonio MD 04-May-2020 16:12:07
[2020-05-04] MEDS ORDERED: POTASSIUM CHLORIDE 20 MEQ PACKET PO ONE ×2 (16:13→18:38)
[2020-05-04] MEDS ORDERED: ACETAMINOPHEN 325 MG TABLET PO ONE (16:51)
--- NOTE | 2020-05-04 17:02 | ER Document Report ---
ED General - General Chief Complaint: General Weakness Stated Complaint: WEAKNESS Time Seen by Provider: 05/04/20 12:34 Primary Care Provider: JOSAFAT LOMBARDO MD [Primary Care Provider] - Follow up as needed TRAVEL OUTSIDE OF THE [place] IN LAST 30 DAYS: No - HPI Notes: Patient is a 80-year-old female with a history of pancreatic cancer, who presents emergency department for evaluation of generalized weakness, frequent falls, poor p.o. intake. The patient was admitted to the hospital in March, discharged to the shelter. She left there just for [place]. She believe s she needs to go back. She states she really is not eating or drinking much at home. She has some chronic abdominal pain secondary to her biliary stent which she states bother her frequently. She states that today she was so weak she fell off of the couch. She denies seeing her head or losing consciousness. No neck or back pain. She does states she feels weak and wants to go back to the shelter. She is told by her daughter, who has a contact at the shelter, that they are holding a bed for her. The patient's daughter adds concerns that the patient has been overmedicating. She states that she has had multiple prescriptions for benzodiazepines and pain medication in the past. - Related Data Allergies/Adverse Reactions: ibuprofen [From Motrin] Allergy (Mild, Verified 05/04/20 12:26) CRAMPING, NAUSEA allopurinol [Allopurinol] Adverse Reaction (Intermediate, Verified 05/04/20 12:26) COUGH Home Medications: xanax, abilify, fluoxetine, potassium Past Medical History - General Information source: Patient, Relative - Social History Smoking Status: Never Smoker Family History: Reviewed & Not Pertinent - Past Medical History Cardiac Medical History: Reports: Hx Hypercholesterolemia, Hx Hypertension, Hx Heart Murmur Denies: Hx Heart Attack Pulmonary Medical History: Reports: Hx Asthma, Hx Bronchitis - 2010, Hx Sleep Apnea Denies: Hx Tuberculosis Neurological Medical History: Reports: Hx Cerebrovascular Accident - SILENT STROKE ON MRI 2012. Denies: Hx Seizures Endocrine Medical History: Reports: Hx Diabetes Mellitus Type 2 Malignancy Medical History: Reports: Hx Pancreatic Cancer GI Medical History: Reports: Hx Gastroesophageal Reflux Disease. Denies: Hx Hepatitis, Hx Hiatal Hernia, Hx Ulcer Musculoskeletal Medical History: Reports Hx Arthritis - hands, neck, knees Psychiatric Medical History: Reports: Hx Depression Infectious Medical History: Denies: Hx Hepatitis Past Surgical History: Reports: Hx Abdominal Surgery, Hx Appendectomy, Hx Cholecystectomy, Hx Hysterectomy, Hx Tonsillectomy. Denies: Hx Mastectomy, Hx Open Heart Surgery, Hx Pacemaker - Immunizations Hx Diphtheria, Pertussis, Tetanus Vaccination: No Hx Pneumococcal Vaccination: 01/08/12 Review of Systems - Review of Systems Constitutional: See HPI EENT: No symptoms reported Cardiovascular: No symptoms reported Respiratory: No symptoms reported Gastrointestinal: See HPI Genitourinary: No symptoms reported Musculoskeletal: No symptoms reported Skin: No symptoms reported Neurological/Psychological: No symptoms reported Physical Exam - Vital signs Vitals: Temp Pulse Resp BP Pulse Ox 97.6 F 102 H 16 130/96 H 96 05/04/20 11:25 05/04/20 11:25 05/04/20 11:25 05/04/20 11:25 05/04/20 11:25 - Notes Notes: Vital signs reviewed, please refer to chart. Head is normocephalic, atraumatic. Pupils equal round, reactive to light. Neck is supple without meningismus. Heart is regular rate and rhythm. Lungs are clear to auscultation bilaterally. Abdomen is soft, nontender, normoactive bowel sounds throughout. Extremities without cyanosis, clubbing. 3+ pitting edema bilateral lower extremities. Posterior calves are nontender. Peripheral pulses are equal. Skin is warm and dry. Patient is awake, alert, neurological exam is nonfocal. Course - Re-evaluation Re-evalutation: 05/04/20 17:02 Patient presents emergency department for evaluation. Laboratory investigations are ordered. Despite her fall, that she does not have any outward signs of trauma. She has no complaints of pain from her falls. I believe these were just secondary to weakness and she did not sustain any injury. Her laboratory investigations did reveal hypokalemia and some mild hyponatremia. I will give IV fluids with potassium. She is given low-dose orally, but I do believe she could tolerate more. The patient asked for something for pain. Patient's daughter has expressed some concern for substance abuse. It was in fact determined that her last admission she may be over taking her benzodiazepines and other controlled substances, because she was admitted with slurred speech, and it was ultimately decided to be the cause. I will just give her Tylenol at this point. Otherwise, awaiting word from shelter in regards to possible placement. She is currently stable. We will continue to monitor. 05/04/20 18:38 Still unsure as to whether or not patient has a bed available this evening at the shelter. Either way, case management has been in touch with the patient's daughter, patient may be discharged home to continue to pursue shelter placement as an outpatient. 05/04/20 18:56 Notified that [facility] will be able to accept this evening. Patient continues to receive IV fluids with potassium, she tolerated 40 mEq of p.o. potassium. I will write for her to have 20 mEq daily for the next 3 days and have her potassium rechecked. Otherwise she will be discharged to the shelter for further care. - Vital Signs Vital signs: Temp Pulse Resp BP Pulse Ox 97.6 F 102 H 16 130/96 H 96 05/04/20 11:25 05/04/20 11:25 05/04/20 11:25 05/04/20 11:25 05/04/20 11:25 - Laboratory Results Result Diagrams: 05/04/20 12:55 05/04/20 12:55 Laboratory Results Interpreted: 05/04/20 05/04/20 05/04/20 12:50 12:55 12:55 RDW 15.2 H Plt Count 139 L Seg Neutrophils % 79.0 H Sodium 134.6 L Potassium 2.7 L* Glucose 252 H POC Glucose Alkaline Phosphatase 174 H Total Protein 5.9 L Albumin 2.8 L Urine Protein 30 H Urine Glucose (UA) 50 H Urine Ketones 20 H Urine Urobilinogen 2.0 H Ur Leukocyte Esterase MODERATE H 05/04/20 13:04 RDW Plt Count Seg Neutrophils % Sodium Potassium Glucose POC Glucose 223 H Alkaline Phosphatase Total Protein Albumin Urine Protein Urine Glucose (UA) Urine Ketones Urine Urobilinogen Ur Leukocyte Esterase Critical Laboratory Results Reviewed: Yes Attending or Supervising Physician who Reviewed Labs: DEMARIO MOLINA - Radiology Results Radiology Results Interpreted: 05/04/20 17:03 Chest X-Ray 05/04/20 12:37 IMPRESSION: No evidence of acute cardiopulmonary abnormality. Critical Radiology Results Reviewed: No Critical Results - EKG Interpretation by Me Additional EKG results interpreted by me: 05/04/20 17:04 Sinus tachycardia with a rate of 103 bpm. PVCs noted. Left axis deviation. Nonspecific ST changes, but no acute ST elevation concerning for infarction. No studies immediately available for comparison. Discharge - Discharge Clinical Impression: Generalized weakness, Hypokalemia, Hyponatremia Condition: Stable Disposition: HOME-SNF (ED ONLY) Instructions: Weakness ([facility]), Hypokalemia ([facility]) Additional Instructions: You are being taken to [facility] for further care. Your potassium was low today. You are to take potassium daily for the next 3 days and it should be rechecked by your primary care provider. Follow-up with your primary care doctor next week. Return to the emergency department with worsening or new concerning symptoms of any sort. Referrals: JOSAFAT LOMBARDO MD [Primary Care Provider] - Follow up as needed
[2020-05-04 19:52] VITALS: BP 128/90
== END 2020-05-04 19:52 ==
LOC: ER 11:14
DX: R53.1 Weakness (principal); E87.6 Hypokalemia; E87.1 Hypo-osmolality and hyponatremia; W08.XXXA Fall from other furniture, initial encounter; E78.00 Pure hypercholesterolemia, unspecified; I10 Essential (primary) hypertension; E11.9 Type 2 diabetes mellitus without complications; Z91.81 History of falling; Z88.6 Allergy status to analgesic agent; Z85.07 Personal history of malignant neoplasm of pancreas
CPT/HCPCS: 93005; 36591; 99285; 96360; 96361; 36415; 82962; 83735; 85025; 80053; 81001; 84484; 71045; 93010; A9270; J3480; J3490